=== PATIENT | female | born 1960 | race Two or more races ===

== ENCOUNTER 2017-09-10 11:56 | Emergency (ER) | payer MEDICAID, OTHER ==
[~2017-09-10] VITALS: Ht 149.9 cm; Wt 63.5 kg
[2017-09-10] MEDS ORDERED: Tylenol #3 tab (300mg/30mg) ORAL ONE (12:45)
--- NOTE | 2017-09-10 13:32 | Diagnostic Imaging Report ---
Indication: Headache Technique: Continuous helical CT scanning of the head was performed utilizing automated exposure control without intravenous contrast material. Axial and coronal reconstructions were obtained. Comparison: 06/20/2015 CT dose: Total DLP 1382.93 mGycm; CTDI vol 70.38 mGy Findings: There is no acute intracranial hemorrhage, mass effect, midline shift or cortical edema. The ventricles, cisterns and sulci are within normal limits for age. Visualized mastoid air cells and paranasal sinuses are unremarkable. No focal lesions of the bony calvarium or soft tissues of the scalp are seen. Impression: No evidence of acute intracranial hemorrhage, mass effect, midline shift or cortical edema. MRI may be obtained for more sensitive evaluation as clinically indicated. The CT scanner at [facility] is accredited by the [employer] and the scans are performed using protocols designed to limit radiation exposure to as low as reasonably achievable to attain images of sufficient resolution adequate for diagnostic evaluation.
[2017-09-10] MEDS ORDERED: AMOXICILLIN500 MG ORAL (13:53)
[2017-09-10] MEDS ORDERED: IBUPROFEN600 MG ORAL (13:53)
[2017-09-10 14:26] VITALS: BP 110/67
[2017-09-11] MEDS ORDERED: NAPROSYN500 M1 ORAL (06:45)
[2017-09-11] MEDS ORDERED: ROBAFEN100 MG/5 M PO (06:45)
--- NOTE | 2017-09-11 13:06 | Emergency Room Report ---
History of Present Illness General Chief Complaint: Headache Source: Patient Present Illness HPI 57-year-old female presents ED for evaluation. Patient states that she's been experience and headache for one week. Started initially with a "cold". Patient describes congestion and runny nose and sinus pressure. States he has not resolved. Now has a headache. Throbbing, 7/10, nonradiating. Denies photophobia or blurry vision. States she feels nauseous. Denies fevers or chills. Denies neck stiffness. No other aggravating relieving factors. Denies any other associated symptoms Allergies: Coded Allergies: NO KNOWN ALLERGIES (Unverified Allergy, Unknown, 06/20/15) Patient History Past Medical History: none Past Surgical History: none Pertinent Family History: none Social History: Denies: smoking, alcohol use, drug use Now: No Immunizations: UTD Reviewed Nursing Documentation: PMH: Agreed, PSxH: Agreed Nursing Documentation-PMH Past Medical History: No Stated History Review of Systems All Other Systems: negative except mentioned in HPI Physical Exam Vital Signs Date Time Temp Pulse Resp B/P (MAP) Pulse Ox O2 Delivery O2 Flow Rate FiO2 09/10/17 12:12 97.7 67 16 104/68 95 Room Air Sp02 EP Interpretation: reviewed, normal General Appearance: no apparent distress, alert, GCS 15, non-toxic Head: normocephalic, atraumatic Eyes: bilateral eye normal inspection, bilateral eye PERRL ENT: hearing grossly normal, normal pharynx, no angioedema, normal voice Neck: full range of motion, no meningismus, supple/symm/no masses Respiratory: chest non-tender, lungs clear, normal breath sounds, speaking full sentences Cardiovascular #1: regular rate, rhythm, no edema Cardiovascular #2: 2+ carotid (R), 2+ carotid (L), 2+ radial (R), 2+ radial (L) , 2+ dorsalis pedis (R), 2+ dorsalis pedis (L) Gastrointestinal: normal bowel sounds, non tender, soft, non-distended, no guarding, no rebound Rectal: deferred Genitourinary: normal inspection, no CVA tenderness Musculoskeletal: back normal, gait/station normal, normal range of motion, non- tender Neurologic: alert, oriented x3, responsive, motor strength/tone normal, sensory intact, speech normal Psychiatric: judgement/insight normal, memory normal, mood/affect normal, no suicidal/homicidal ideation Reflexes: 3+ bicep (R), 3+ bicep (L), 3+ tricep (R), 3+ tricep (L), 3+ knee (R) , 3+ knee (L) Skin: normal color, no rash, warm/dry, well hydrated Lymphatic: no adenopathy Medical Decision Making Diagnostic Impression: Primary Impression: Headache Qualified Codes: R51 - Headache ER Course Hospital Course 57-year-old female presents to ED complaining of headache with nausea, pressure- like, recent history of cold Differential diagnoses include: intracranial bleed, CVA, sinusitis, migraine Clinical course Patient placed on stretcher. After initial history and physical I ordered CT head and pain medications CT head shows no acute process. on reassessment pain is improved. clinically most consistent with sinusitis. Diagnosis -headache Stable and discharged to home with Rx amoxicillin, motrin. Followup with PMD. Return to ED if symptoms recur or worsen CT/MRI/US Diagnostic Results CT/MRI/US Diagnostic Results : Imaging Test Ordered: CT Head Impression no acute process Last Vital Signs Date Time Temp Pulse Resp B/P (MAP) Pulse Ox O2 Delivery O2 Flow Rate FiO2 09/10/17 14:26 97.7 66 15 110/67 99 Room Air Status: improved Disposition: HOME, SELF-CARE Condition: Stable Scripts Ibuprofen* (MOTRIN*) 600 Mg Tablet 600 MG ORAL Q8H Y for For Pain, #30 TAB 0 Refills Prov: ANU DE LA GARZA M.D. 09/10/17 Amoxicillin* (AMOXIL*) 500 Mg Capsule 500 MG ORAL THREE TIMES A DAY for 10 Days, #30 CAP Prov: ANU DE LA GARZA M.D. 09/10/17 Referrals: NON PHYSICIAN (PCP) Patient Instructions: Sinus Headache ANU DE LA GARZA M.D. Sep 11, 2017 13:06
== END 2017-09-10 14:31 | disposition home or self-care (01) ==
LOC: EMR 12:40
DX: R51 Headache (principal)
CPT/HCPCS: 70450; 96372; 99284; J2405

== ENCOUNTER 2017-09-11 04:38 | Inpatient (IN) | payer MEDICAID ==
[~2017-09-11] VITALS: Ht 149.9 cm; Wt 66.7 kg
[~2017-09-11 04:38] MED LIST: AMOXICILLIN500 MG ORAL; IBUPROFEN600 MG ORAL
[2017-09-11 04:48] VITALS: BP 95/58
[2017-09-11] MEDS ORDERED: Sucralfate 1gm tab ORAL ONE (05:15)
--- NOTE | 2017-09-11 05:21 | Emergency Room Report ---
History of Present Illness General Chief Complaint: Abdominal Pain Source: Patient Present Illness HPI Patient is a 57-year-old female presented after increased epigastric pain. Patient gradual onset of symptoms the patient reported having worsened epigastric burning sensation after taking ibuprofen. The patient recently been seen for headache and had been prescribed ibuprofen. The patient presented prior history of gastritis. Patient reports having pain in the epigastric area. Radiated to her back. She had recent upper respiratory, symptoms. Allergies: Coded Allergies: NO KNOWN ALLERGIES (Unverified Allergy, Unknown, 06/20/15) Patient History Past Medical History: see triage record Last Menstrual Period: NA Now: No Reviewed Nursing Documentation: PMH: Agreed, PSxH: Agreed Nursing Documentation-PMH Past Medical History: No Stated History Review of Systems All Other Systems: negative except mentioned in HPI Physical Exam Vital Signs Date Time Temp Pulse Resp B/P (MAP) Pulse Ox O2 Delivery O2 Flow Rate FiO2 09/11/17 04:41 75 18 95/58 98 Room Air 09/11/17 04:48 98.2 Sp02 EP Interpretation: reviewed, normal General Appearance: normal inspection, well appearing, alert, GCS 15, mild distress Head: atraumatic ENT: normal ENT inspection, hearing grossly normal, normal voice Neck: normal inspection, full range of motion, supple, no bony tend Respiratory: normal inspection, lungs clear, normal breath sounds, no respiratory distress, no retraction, no wheezing Cardiovascular #1: regular rate, rhythm, no edema Gastrointestinal: normal inspection, normal bowel sounds, non tender, soft, no guarding, no hernia Genitourinary: no CVA tenderness Musculoskeletal: normal inspection, back normal, normal range of motion Neurologic: normal inspection, alert, oriented x3, responsive, oil sales and service rep III-XII nml as tested, speech normal Psychiatric: normal inspection, judgement/insight normal, mood/affect normal Skin: normal inspection, normal color, no rash Medical Decision Making Diagnostic Impression: Primary Impression: Pancreatitis, acute ER Course .Patient presented for abdominal pain. Differential diagnoses included ischemic bowel, appendicitis, perforated viscus, abdominal aortic aneurysm, inferior myocardial infarction, viral gastroenteritis. Because of complexity of patient' s case laboratory testing and imaging studies were ordered. Patient was given IV fluids here and pain medications. She was noted to have some improvement. Laboratory testing was notable for markedly elevated lipase consistent with pancreatitis. Dr. Dwyer was contacted for inpatient management due to complexity of medical condition and capititated physician. Labs Test 09/11/17 05:25 White Blood Count 9.6 K/UL (4.8-10.8) Red Blood Count 4.79 M/UL (4.20-5.40) Hemoglobin 14.0 G/DL (12.0-16.0) Hematocrit 41.8 % (37.0-47.0) Mean Corpuscular Volume 87 FL (80-99) Mean Corpuscular Hemoglobin 29.2 PG (27.0-31.0) Mean Corpuscular Hemoglobin Concent 33.5 G/DL (32.0-36.0) Red Cell Distribution Width 11.4 % (11.6-14.8) Platelet Count 366 K/UL (150-450) Mean Platelet Volume 7.7 FL (6.5-10.1) Neutrophils (%) (Auto) 67.2 % (45.0-75.0) Lymphocytes (%) (Auto) 25.7 % (20.0-45.0) Monocytes (%) (Auto) 5.7 % (1.0-10.0) Eosinophils (%) (Auto) 0.8 % (0.0-3.0) Basophils (%) (Auto) 0.6 % (0.0-2.0) Prothrombin Time 10.0 SEC (9.30-11.50) Prothromb Time International Ratio 1.0 (0.9-1.1) Activated Partial Thromboplast Time 25 SEC (23-33) Urine Color Yellow Urine Appearance Clear Urine pH 8 (4.5-8.0) Urine Specific [place] 1.010 (1.005-1.035) Urine Protein Negative (NEGATIVE) Urine Glucose (UA) Negative (NEGATIVE) Urine Ketones Negative (NEGATIVE) Urine Occult Blood 2+ (NEGATIVE) Urine Nitrite Negative (NEGATIVE) Urine Bilirubin Negative (NEGATIVE) Urine Urobilinogen Normal MG/DL (0.0-1.0) Urine Leukocyte Esterase 2+ (NEGATIVE) Urine RBC 2-4 /HPF (0 - 2) Urine WBC 5-10 /HPF (0 - 2) Urine Squamous Epithelial Cells Few /LPF (NONE/OCC) Urine Amorphous Sediment Many /LPF (NONE) Urine Bacteria Few /HPF (NONE) Sodium Level 140 MMOL/L (136-145) Potassium Level 3.5 MMOL/L (3.5-5.1) Chloride Level 103 MMOL/L (98-107) Carbon Dioxide Level 28 MMOL/L (21-32) Anion Gap 9 mmol/L (5-15) Blood Urea Nitrogen 18 mg/dL (7-18) Creatinine 0.8 MG/DL (0.55-1.30) Estimat Glomerular Filtration Rate > 60 mL/min (>60) Glucose Level 122 MG/DL (74-106) Calcium Level 9.2 MG/DL (8.5-10.1) Total Bilirubin 0.4 MG/DL (0.2-1.0) Aspartate Amino Transf (AST/SGOT) 28 U/L (15-37) Alanine Aminotransferase (ALT/SGPT) 30 U/L (12-78) Alkaline Phosphatase 135 U/L (46-116) Troponin I 0.000 ng/mL (0.000-0.056) Total Protein 8.7 G/DL (6.4-8.2) Albumin 3.8 G/DL (3.4-5.0) Globulin 4.9 g/dL Albumin/Globulin Ratio 0.8 (1.0-2.7) Lipase 1644 U/L (73-393) Last Vital Signs Date Time Temp Pulse Resp B/P (MAP) Pulse Ox O2 Delivery O2 Flow Rate FiO2 09/11/17 04:48 98.2 82 18 95/58 98 Room Air Status: improved Disposition: ADMITTED INPATIENT Condition: Serious Referrals: [facility],REFERRING (PCP) Teodoro Sanford Sep 11, 2017 05:21
[2017-09-11 05:29] LABS: BASOPHILS % (AUTO) 0.6 % (0.0-2.0); EOSINOPHILS % (AUTO) 0.8 % (0.0-3.0); HEMATOCRIT 41.8 % (37.0-47.0); LYMPHOCYTES % (AUTO) 25.7 % (20.0-45.0); MEAN CORPUSCULAR VOLUME 87 FL (80-99); MONOCYTES % (AUTO) 5.7 % (1.0-10.0); NEUTROPHILS % (AUTO) 67.2 % (45.0-75.0); PLATELET COUNT 366 K/UL (150-450); RED BLOOD COUNT 4.79 M/UL (4.20-5.40); RED CELL DISTRIBUTION WIDTH 11.4 % (11.6-14.8); WHITE BLOOD COUNT 9.6 K/UL (4.8-10.8)
[2017-09-11 05:32] LABS: APPEARANCE,URINE CLEAR; BILIRUBIN, URINE NEGATIVE (NEGATIVE); GLUCOSE, URINE (UA) NEGATIVE (NEGATIVE); KETONES,URINE NEGATIVE (NEGATIVE); LEUKOCYTE ESTERASE ,URINE 2+ (NEGATIVE); NITRITE,URINE NEGATIVE (NEGATIVE); PH,URINE 8 (4.5-8.0); PROTEIN,URINE NEGATIVE (NEGATIVE); UROBILINOGEN,URINE NORMAL MG/DL (0.0-1.0)
[2017-09-11 05:38] LABS: COLOR,URINE YELLOW
[2017-09-11 05:40] LABS: ANION GAP 9 mmol/L (5-15); BLOOD UREA NITROGEN 18 mg/dL (7-18); CALCIUM 9.2 MG/DL (8.5-10.1); CARBON DIOXIDE 28 MMOL/L (21-32); CHLORIDE 103 MMOL/L (98-107); CREATININE 0.8 MG/DL (0.55-1.30); POTASSIUM 3.5 MMOL/L (3.5-5.1); SODIUM 140 MMOL/L (136-145)
[2017-09-11 05:45] LABS: ALANINE AMINOTRANSFERASE 30 U/L (12-78); ALBUMIN 3.8 G/DL (3.4-5.0); ALBUMIN/GLOBULIN RATIO 0.8 (1.0-2.7); ALKALINE PHOSPHATASE 135 U/L (46-116); ASPARTATE AMINO TRANSFERASE 28 U/L (15-37); BILIRUBIN,TOTAL 0.4 MG/DL (0.2-1.0)
[2017-09-11] MEDS ORDERED: cefTRIAXone 1 GM in NS 55 ML IVPB ONE (05:45)
[2017-09-11] MEDS ORDERED: Morphine Sulfate 4mg/ml Inj IVP ONE (06:00)
[2017-09-11] MEDS ORDERED: Nitroglycerin Subl 0.4mg tab SL PRN (06:45)
[2017-09-11] MEDS ORDERED: NAPROSYN500 M1 ORAL (06:45)
[2017-09-11] MEDS ORDERED: Mylanta II UD 30ml ORAL PRN (06:45)
[2017-09-11] MEDS ORDERED: ROBAFEN100 MG/5 M PO (06:45)
[2017-09-11 06:48] VITALS: BP 118/69
[2017-09-11] MEDS ORDERED: D5 1/2NS 1,000 ML IV SCH (07:30)
[2017-09-11 08:00] VITALS: BP 112/60
[2017-09-11] MEDS: Pantoprazole Inj IVP SCH (08:54)
[2017-09-11] MEDS: Morphine Sulfate 2mg/ml Inj IVP PRN ×2 (08:55→18:32)
[2017-09-11] MEDS: Heparin 5000 units/ml inj SUBQ SCH ×2 (08:56→20:55)
--- NOTE | 2017-09-11 09:09 | Diagnostic Imaging Report ---
Clinical Indication: Abdominal pain Technique: No oral contrast utilized, per emergency room physician request IV administration nonionic contrast. Venous phase spiral acquisition obtained through the abdomen and pelvis. Multiplanar reconstructions were generated. Total dose length product 907.35 mGycm. CTDIvol(s) 17.49 mGy. Dose reduction achieved using automated exposure control Comparison: none Findings: The stomach is distended. The proximal small bowel is distended and fluid-filled with an extremely gradual tapering to normal caliber small bowel in the left side of the abdomen. The terminal ileum is also slightly prominent, filled with fluid and small bowel feces. Some edema is seen within the fat adjacent to the ligament of Treitz. There are a few colonic diverticula. The appendix is not definitely visualized, but no findings to suggest acute appendicitis are evident. A few prominent nodes are seen in the right lower quadrant. There is a small fat-containing ventral hernia. No free or loculated intraperitoneal air or fluid. The distal esophagus is unremarkable. The liver is diffusely mildly hypoattenuating. The gallbladder, bile ducts, pancreas, spleen, adrenals, kidneys are unremarkable. No retroperitoneal or mesenteric mass or adenopathy. No pelvic mass or adenopathy. Uterus and adnexal structures appear unremarkable. The bones are unremarkable. A non-calcified 5 mm solid nodule in the right lower lobe (series 5, image 12) is indeterminate. At least 2 calcified granulomata are also seen at the right lung base. Impression: Distended stomach, duodenum, and proximal small bowel, with gradual tapering to normal caliber small bowel at the level of the distal jejunum. Findings may indicate either proximal low grade small bowel obstruction, versus unusual manifestation of ileus or enteritis. Correlate with clinical findings Mild hepatic fatty change Small fat-containing ventral hernia Indeterminate solid pulmonary nodule measuring 5 mm. In a low-risk patient with a solid nodule <6 mm, recommend no follow-up. In a high-risk patient, CT at 12 months is optional with stronger consideration if there is suspicious nodule morphology and/or upper lobe location. This agrees with the preliminary interpretation provided overnight by [facility] teleradiology service. Jace Bustos et al. Guidelines for Management of Incidental Pulmonary Nodules Detected on CT Images: From the Fleischner Society 2017. Radiology. 2017 [place];284(1):228-243. The CT scanner at [facility] is accredited by the [employer] and the scans are performed using protocols designed to limit radiation exposure to as low as reasonably achievable to attain images of sufficient resolution adequate for diagnostic evaluation.
[2017-09-11 09:56] LABS: CHOLESTEROL 201 MG/DL (< 200); HDL CHOLESTEROL 41 MG/DL (40-60); TRIGLYCERIDES 207 MG/DL (30-150)
--- NOTE | 2017-09-11 11:24 | Consultation ---
Consult Note Consult Note id dic # [id number] HUE HERNANDEZ M.D. Sep 11, 2017 11:23
--- NOTE | 2017-09-11 11:32 | History and Physical ---
History of Present Illness General Date patient seen: Sep 11, 2017 Reason for Hospitalization: Abdominal Pain Present Illness HPI 57-year-old female with prior history of gastritis presented after increased epigastric pain with gradual onset of symptoms after taking ibuprofen. Patient reports having pain in the epigastric area. Radiated to her back. She was found to have acute pancreatitis with increased lipase and admitted for further management. Allergies: Coded Allergies: NO KNOWN ALLERGIES (Unverified Allergy, Unknown, 06/20/15) Medication History Scheduled Amoxicillin* (Amoxil*), 500 MG ORAL THREE TIMES A DAY Guaifenesin (Robafen), 100 MG PO Q6HR, (Reported) Naproxen* (Naprosyn*), 500 MG ORAL TWICE A DAY, (Reported) Scheduled PRN Ibuprofen* (Motrin*), 600 MG ORAL Q8H PRN for For Pain Patient History Healthcare decision maker Resuscitation status Full Code Advanced Directive on File Review of Systems Constitutional: Reports: malaise, weakness Gastrointestinal: Reports: nausea, vomiting Physical Exam General Appearance: WD/WN, no apparent distress Lines, tubes and drains: peripheral HEENT: normocephalic, atraumatic Neck: non-tender, normal alignment Respiratory/Chest: chest wall non-tender, lungs clear Abdomen: normal bowel sounds Genitourinary/Rectal: normal genital exam Last 24 Hour Vital Signs Date Time Temp Pulse Resp B/P (MAP) Pulse Ox O2 Delivery O2 Flow Rate FiO2 09/11/17 08:07 98.2 60 16 118/69 97 Room Air 09/11/17 08:00 97.2 59 20 112/60 99 Room Air 09/11/17 07:04 98.2 09/11/17 06:48 98.2 60 16 118/69 97 Room Air 09/11/17 04:48 98.2 82 18 95/58 98 Room Air 09/11/17 04:41 75 18 95/58 98 Room Air Laboratory Tests Test 09/11/17 05:25 White Blood Count 9.6 K/UL (4.8-10.8) Red Blood Count 4.79 M/UL (4.20-5.40) Hemoglobin 14.0 G/DL (12.0-16.0) Hematocrit 41.8 % (37.0-47.0) Mean Corpuscular Volume 87 FL (80-99) Mean Corpuscular Hemoglobin 29.2 PG (27.0-31.0) Mean Corpuscular Hemoglobin Concent 33.5 G/DL (32.0-36.0) Red Cell Distribution Width 11.4 % (11.6-14.8) L Platelet Count 366 K/UL (150-450) Mean Platelet Volume 7.7 FL (6.5-10.1) Neutrophils (%) (Auto) 67.2 % (45.0-75.0) Lymphocytes (%) (Auto) 25.7 % (20.0-45.0) Monocytes (%) (Auto) 5.7 % (1.0-10.0) Eosinophils (%) (Auto) 0.8 % (0.0-3.0) Basophils (%) (Auto) 0.6 % (0.0-2.0) Prothrombin Time 10.0 SEC (9.30-11.50) Prothromb Time International Ratio 1.0 (0.9-1.1) Activated Partial Thromboplast Time 25 SEC (23-33) Urine Color Yellow Urine Appearance Clear Urine pH 8 (4.5-8.0) Urine Specific [place] 1.010 (1.005-1.035) Urine Protein Negative (NEGATIVE) Urine Glucose (UA) Negative (NEGATIVE) Urine Ketones Negative (NEGATIVE) Urine Occult Blood 2+ (NEGATIVE) H Urine Nitrite Negative (NEGATIVE) Urine Bilirubin Negative (NEGATIVE) Urine Urobilinogen Normal MG/DL (0.0-1.0) Urine Leukocyte Esterase 2+ (NEGATIVE) H Urine RBC 2-4 /HPF (0 - 2) H Urine WBC 5-10 /HPF (0 - 2) H Urine Squamous Epithelial Cells Few /LPF (NONE/OCC) Urine Amorphous Sediment Many /LPF (NONE) H Urine Bacteria Few /HPF (NONE) Sodium Level 140 MMOL/L (136-145) Potassium Level 3.5 MMOL/L (3.5-5.1) Chloride Level 103 MMOL/L (98-107) Carbon Dioxide Level 28 MMOL/L (21-32) Anion Gap 9 mmol/L (5-15) Blood Urea Nitrogen 18 mg/dL (7-18) Creatinine 0.8 MG/DL (0.55-1.30) Estimat Glomerular Filtration Rate > 60 mL/min (>60) Glucose Level 122 MG/DL (74-106) H Calcium Level 9.2 MG/DL (8.5-10.1) Total Bilirubin 0.4 MG/DL (0.2-1.0) Aspartate Amino Transf (AST/SGOT) 28 U/L (15-37) Alanine Aminotransferase (ALT/SGPT) 30 U/L (12-78) Alkaline Phosphatase 135 U/L (46-116) H Troponin I 0.000 ng/mL (0.000-0.056) Total Protein 8.7 G/DL (6.4-8.2) H Albumin 3.8 G/DL (3.4-5.0) Globulin 4.9 g/dL Albumin/Globulin Ratio 0.8 (1.0-2.7) L Triglycerides Level 207 MG/DL (30-150) H Cholesterol Level 201 MG/DL (< 200) H LDL Cholesterol 123 mg/dL (<100) H HDL Cholesterol 41 MG/DL (40-60) Cholesterol/HDL Ratio 4.9 (3.3-4.4) H Lipase 1644 U/L (73-393) H Height (Feet): 4 Height (Inches): 11.00 Weight (Pounds): 147 Medications Current Medications Medications (Trade) Dose Ordered Sig/Machelle Route PRN Reason Start Time Stop Time Status Last Admin Dose Admin Acetaminophen (Tylenol) 650 mg Q4H PRN ORAL T>100.5 09/11/17 06:45 10/11/17 06:44 Al Hydroxide/Mg Hydroxide (Mylanta II) 30 ml Q6H PRN ORAL dyspepsia 09/11/17 06:45 10/11/17 06:44 Dextrose (Dextrose 50%) STAT PRN IV Hypoglycemia 09/11/17 06:45 10/11/17 06:44 Dextrose/Sodium Chloride 1,000 ml @ 75 mls/hr [id number] IV 09/11/17 07:30 10/11/17 07:29 09/11/17 08:54 Diphenhydramine HCl (Benadryl) 25 mg Q6H PRN ORAL Itching/Pruritis 09/11/17 06:45 10/11/17 06:44 Heparin Sodium (Porcine) (Heparin 5000 units/ml) 5,000 units EVERY 12 HOURS SUBQ 09/11/17 09:00 10/11/17 08:59 09/11/17 08:56 Morphine Sulfate (Morphine Sulfate) 2 mg Q4H PRN IVP Severe Pain (Pain Scale 7-10) 09/11/17 06:45 09/18/17 06:44 09/11/17 08:55 Nitroglycerin (Ntg) 0.4 mg Q5M X 3 DOSES PRN SL Prn Chest Pain 09/11/17 06:45 10/11/17 06:44 Ondansetron HCl (Zofran) 4 mg Q6H PRN IVP Nausea & Vomiting 09/11/17 06:45 10/11/17 06:44 Pantoprazole (Protonix) 40 mg DAILY IVP 09/11/17 09:00 10/11/17 08:59 09/11/17 08:54 Polyethylene Glycol (Miralax) 17 gm HSPRN PRN ORAL Constipation 09/11/17 21:00 10/11/17 20:59 Temazepam (Restoril) 15 mg HSPRN PRN ORAL Insomnia 09/11/17 21:00 09/18/17 20:59 Assessment/Plan Problem List: (1) Pancreatitis, acute ICD Codes: K85.90 - Acute pancreatitis without necrosis or infection, unspecified SNOMED: [id number] Assessment/Plan npo IV fluids symptomatic treatment GI to see ROSEANNA ROTH Sep 11, 2017 11:32
[2017-09-11 12:00] VITALS: BP 106/60
[2017-09-11] MEDS: D5 1/2NS 1,000 ML IV SCH ×2 (12:30→20:48)
--- NOTE | 2017-09-11 12:39 | Diagnostic Imaging Report ---
Indication: Reason For Exam: SOB Technique: One view of the chest Comparison: none Findings: There is a calcified granuloma at the right lung base. Lungs well spaces are otherwise clear. Normal heart size. Impression: No acute process
--- NOTE | 2017-09-11 13:05 | Neurology Progress Note ---
Objective Physical Exam Last Vital Signs Date Time Temp Pulse Resp B/P (MAP) Pulse Ox O2 Delivery O2 Flow Rate FiO2 09/11/17 08:07 98.2 60 16 118/69 97 Room Air Laboratory Tests Test 09/11/17 05:25 White Blood Count 9.6 K/UL (4.8-10.8) Red Blood Count 4.79 M/UL (4.20-5.40) Hemoglobin 14.0 G/DL (12.0-16.0) Hematocrit 41.8 % (37.0-47.0) Mean Corpuscular Volume 87 FL (80-99) Mean Corpuscular Hemoglobin 29.2 PG (27.0-31.0) Mean Corpuscular Hemoglobin Concent 33.5 G/DL (32.0-36.0) Red Cell Distribution Width 11.4 % (11.6-14.8) L Platelet Count 366 K/UL (150-450) Mean Platelet Volume 7.7 FL (6.5-10.1) Neutrophils (%) (Auto) 67.2 % (45.0-75.0) Lymphocytes (%) (Auto) 25.7 % (20.0-45.0) Monocytes (%) (Auto) 5.7 % (1.0-10.0) Eosinophils (%) (Auto) 0.8 % (0.0-3.0) Basophils (%) (Auto) 0.6 % (0.0-2.0) Prothrombin Time 10.0 SEC (9.30-11.50) Prothromb Time International Ratio 1.0 (0.9-1.1) Activated Partial Thromboplast Time 25 SEC (23-33) Urine Color Yellow Urine Appearance Clear Urine pH 8 (4.5-8.0) Urine Specific [place] 1.010 (1.005-1.035) Urine Protein Negative (NEGATIVE) Urine Glucose (UA) Negative (NEGATIVE) Urine Ketones Negative (NEGATIVE) Urine Occult Blood 2+ (NEGATIVE) H Urine Nitrite Negative (NEGATIVE) Urine Bilirubin Negative (NEGATIVE) Urine Urobilinogen Normal MG/DL (0.0-1.0) Urine Leukocyte Esterase 2+ (NEGATIVE) H Urine RBC 2-4 /HPF (0 - 2) H Urine WBC 5-10 /HPF (0 - 2) H Urine Squamous Epithelial Cells Few /LPF (NONE/OCC) Urine Amorphous Sediment Many /LPF (NONE) H Urine Bacteria Few /HPF (NONE) Sodium Level 140 MMOL/L (136-145) Potassium Level 3.5 MMOL/L (3.5-5.1) Chloride Level 103 MMOL/L (98-107) Carbon Dioxide Level 28 MMOL/L (21-32) Anion Gap 9 mmol/L (5-15) Blood Urea Nitrogen 18 mg/dL (7-18) Creatinine 0.8 MG/DL (0.55-1.30) Estimat Glomerular Filtration Rate > 60 mL/min (>60) Glucose Level 122 MG/DL (74-106) H Calcium Level 9.2 MG/DL (8.5-10.1) Total Bilirubin 0.4 MG/DL (0.2-1.0) Aspartate Amino Transf (AST/SGOT) 28 U/L (15-37) Alanine Aminotransferase (ALT/SGPT) 30 U/L (12-78) Alkaline Phosphatase 135 U/L (46-116) H Troponin I 0.000 ng/mL (0.000-0.056) Total Protein 8.7 G/DL (6.4-8.2) H Albumin 3.8 G/DL (3.4-5.0) Globulin 4.9 g/dL Albumin/Globulin Ratio 0.8 (1.0-2.7) L Triglycerides Level 207 MG/DL (30-150) H Cholesterol Level 201 MG/DL (< 200) H LDL Cholesterol 123 mg/dL (<100) H HDL Cholesterol 41 MG/DL (40-60) Cholesterol/HDL Ratio 4.9 (3.3-4.4) H Lipase 1644 U/L (73-393) H Impression/Recommendations Recommendations #[id number] ANNABELLE MUÑOZ Sep 11, 2017 13:05
[2017-09-11] MEDS ORDERED: Meclizine 25mg tab ORAL PRN (13:15)
--- NOTE | 2017-09-11 13:58 | Consultation ---
History of Present Illness General Date patient seen: Sep 11, 2017 Chief Complaint: Abdominal Pain Reason for Consultation: abdominal pain Present Illness HPI 57F presented to ED with complaints of cramping abdominal pain, nausea and emesis. States that she has had symptoms for a few days and came to ED yesterday. Pain began as a epigastric discomfort with radiation to the back. pain sharp and intermittent. associated with nausea and non bloody emesis. had a similar episode many years ago but does not recall details. In ED found to have elevated lipase, CT with distended proximal small bowel and stomach with no transition point. states she is otherwise healthy. currently more comfortable but does have a headache. did have episode of emesis this AM. mild cramping currently. Allergies: Coded Allergies: NO KNOWN ALLERGIES (Unverified Allergy, Unknown, 06/20/15) Medication History Scheduled Amoxicillin* (Amoxil*), 500 MG ORAL THREE TIMES A DAY Guaifenesin (Robafen), 100 MG PO Q6HR, (Reported) Naproxen* (Naprosyn*), 500 MG ORAL TWICE A DAY, (Reported) Scheduled PRN Ibuprofen* (Motrin*), 600 MG ORAL Q8H PRN for For Pain Patient History History Provided By: Patient, Medical Record Healthcare decision maker Resuscitation status Full Code Advanced Directive on File Past Medical/Surgical History Past Medical/Surgical History: (1) Pancreatitis, acute (2) Headache Review of Systems Constitutional: Denies: no symptoms, see HPI, chills, sweats, fever, malaise, weakness, other Eye: Denies: no symptoms, see HPI, eye pain, blurred vision, tearing, double vision, nose pain, nose congestion, acuity changes, discharge, other ENT: Denies: no symptoms, see HPI, ear pain, ear discharge, nose pain, nose congestion, throat pain, throat swelling, mouth pain, hearing loss, nasal discharge, other Respiratory: Denies: no symptoms, see HPI, cough, orthopnea, shortness of breath, stridor, wheezing, WILKS, sputum, other Cardiovascular: Denies: no symptoms, see HPI, chest pain, edema, palpitations, syncope, PND, other Gastrointestinal: Reports: abdominal pain, nausea, vomiting Genitourinary: Denies: no symptoms, see HPI, discharge, dysuria, frequency, hematuria, pain, retention, incontinence, urgency, vag bleed/dc, other Musculoskeletal: Denies: no symptoms, see HPI, back pain, gout, joint pain, joint swelling, muscle pain, muscle stiffness, other Skin: Denies: no symptoms, see HPI, rash, change in color, change in hair/nails , dryness, lesions, other Psychiatric: Denies: no symptoms, see HPI, prior hx, anxiety, depressed feelings, emotional problems, SI, HI, hallucinations, other Neurological: Reports: headache Endocrine: Denies: no symptoms, see HPI, excessive sweating, flushing, intolerance to temperature, increased thirst, increased urine, unexplained weight loss, other Hematologic/Lymphatic: Denies: no symptoms, see HPI, anemia, blood clots, easy bleeding, easy bruising, swollen glands, diathesis, other Physical Exam General Appearance: WD/WN, no apparent distress, alert Lines, tubes and drains: peripheral HEENT: normocephalic, anicteric, mucous membranes moist, PERRL Neck: normal alignment, supple, normal inspection Respiratory/Chest: lungs clear, normal breath sounds, no respiratory distress, no accessory muscle use Cardiovascular/Chest: normal peripheral pulses, normal rate, regular rhythm Abdomen: normal bowel sounds, non tender, soft, no organomegaly, no mass Extremities: normal range of motion, non-tender, normal inspection Skin Exam: normal pigmentation, warm/dry Neurologic: alert, oriented x 3, responsive Last 24 Hour Vital Signs Date Time Temp Pulse Resp B/P (MAP) Pulse Ox O2 Delivery O2 Flow Rate FiO2 09/11/17 12:00 61 20 106/60 09/11/17 08:07 98.2 60 16 118/69 97 Room Air 09/11/17 08:00 97.2 59 20 112/60 99 Room Air 09/11/17 07:04 98.2 09/11/17 06:48 98.2 60 16 118/69 97 Room Air 09/11/17 04:48 98.2 82 18 95/58 98 Room Air 09/11/17 04:41 75 18 95/58 98 Room Air Laboratory Tests Test 09/11/17 05:25 White Blood Count 9.6 K/UL (4.8-10.8) Red Blood Count 4.79 M/UL (4.20-5.40) Hemoglobin 14.0 G/DL (12.0-16.0) Hematocrit 41.8 % (37.0-47.0) Mean Corpuscular Volume 87 FL (80-99) Mean Corpuscular Hemoglobin 29.2 PG (27.0-31.0) Mean Corpuscular Hemoglobin Concent 33.5 G/DL (32.0-36.0) Red Cell Distribution Width 11.4 % (11.6-14.8) L Platelet Count 366 K/UL (150-450) Mean Platelet Volume 7.7 FL (6.5-10.1) Neutrophils (%) (Auto) 67.2 % (45.0-75.0) Lymphocytes (%) (Auto) 25.7 % (20.0-45.0) Monocytes (%) (Auto) 5.7 % (1.0-10.0) Eosinophils (%) (Auto) 0.8 % (0.0-3.0) Basophils (%) (Auto) 0.6 % (0.0-2.0) Prothrombin Time 10.0 SEC (9.30-11.50) Prothromb Time International Ratio 1.0 (0.9-1.1) Activated Partial Thromboplast Time 25 SEC (23-33) Urine Color Yellow Urine Appearance Clear Urine pH 8 (4.5-8.0) Urine Specific [place] 1.010 (1.005-1.035) Urine Protein Negative (NEGATIVE) Urine Glucose (UA) Negative (NEGATIVE) Urine Ketones Negative (NEGATIVE) Urine Occult Blood 2+ (NEGATIVE) H Urine Nitrite Negative (NEGATIVE) Urine Bilirubin Negative (NEGATIVE) Urine Urobilinogen Normal MG/DL (0.0-1.0) Urine Leukocyte Esterase 2+ (NEGATIVE) H Urine RBC 2-4 /HPF (0 - 2) H Urine WBC 5-10 /HPF (0 - 2) H Urine Squamous Epithelial Cells Few /LPF (NONE/OCC) Urine Amorphous Sediment Many /LPF (NONE) H Urine Bacteria Few /HPF (NONE) Sodium Level 140 MMOL/L (136-145) Potassium Level 3.5 MMOL/L (3.5-5.1) Chloride Level 103 MMOL/L (98-107) Carbon Dioxide Level 28 MMOL/L (21-32) Anion Gap 9 mmol/L (5-15) Blood Urea Nitrogen 18 mg/dL (7-18) Creatinine 0.8 MG/DL (0.55-1.30) Estimat Glomerular Filtration Rate > 60 mL/min (>60) Glucose Level 122 MG/DL (74-106) H Calcium Level 9.2 MG/DL (8.5-10.1) Total Bilirubin 0.4 MG/DL (0.2-1.0) Aspartate Amino Transf (AST/SGOT) 28 U/L (15-37) Alanine Aminotransferase (ALT/SGPT) 30 U/L (12-78) Alkaline Phosphatase 135 U/L (46-116) H Troponin I 0.000 ng/mL (0.000-0.056) Total Protein 8.7 G/DL (6.4-8.2) H Albumin 3.8 G/DL (3.4-5.0) Globulin 4.9 g/dL Albumin/Globulin Ratio 0.8 (1.0-2.7) L Triglycerides Level 207 MG/DL (30-150) H Cholesterol Level 201 MG/DL (< 200) H LDL Cholesterol 123 mg/dL (<100) H HDL Cholesterol 41 MG/DL (40-60) Cholesterol/HDL Ratio 4.9 (3.3-4.4) H Lipase 1644 U/L (73-393) H Anti-Nuclear Antibody Screen Pending Height (Feet): 4 Height (Inches): 11.00 Weight (Pounds): 147 Medications Current Medications Medications (Trade) Dose Ordered Sig/Machelle Route PRN Reason Start Time Stop Time Status Last Admin Dose Admin Acetaminophen (Tylenol) 650 mg Q4H PRN ORAL T>100.5 09/11/17 06:45 10/11/17 06:44 Al Hydroxide/Mg Hydroxide (Mylanta II) 30 ml Q6H PRN ORAL dyspepsia 09/11/17 06:45 10/11/17 06:44 Dextrose (Dextrose 50%) STAT PRN IV Hypoglycemia 09/11/17 06:45 10/11/17 06:44 Dextrose/Sodium Chloride 1,000 ml @ 125 mls/hr Q8H IV 09/11/17 12:30 10/11/17 12:29 Diphenhydramine HCl (Benadryl) 25 mg Q6H PRN ORAL Itching/Pruritis 09/11/17 06:45 10/11/17 06:44 Heparin Sodium (Porcine) (Heparin 5000 units/ml) 5,000 units EVERY 12 HOURS SUBQ 09/11/17 09:00 10/11/17 08:59 09/11/17 08:56 Meclizine HCl (Antivert) 25 mg Q6H PRN ORAL for dizziness 09/11/17 13:15 10/11/17 13:14 Morphine Sulfate (Morphine Sulfate) 2 mg Q4H PRN IVP Severe Pain (Pain Scale 7-10) 09/11/17 06:45 09/18/17 06:44 09/11/17 08:55 Nitroglycerin (Ntg) 0.4 mg Q5M X 3 DOSES PRN SL Prn Chest Pain 09/11/17 06:45 10/11/17 06:44 Ondansetron HCl (Zofran) 4 mg Q6H PRN IVP Nausea & Vomiting 09/11/17 06:45 10/11/17 06:44 Pantoprazole (Protonix) 40 mg DAILY IVP 09/11/17 09:00 10/11/17 08:59 09/11/17 08:54 Polyethylene Glycol (Miralax) 17 gm HSPRN PRN ORAL Constipation 09/11/17 21:00 10/11/17 20:59 Temazepam (Restoril) 15 mg HSPRN PRN ORAL Insomnia 09/11/17 21:00 09/18/17 20:59 Assessment/Plan Problem List: (1) Pancreatitis, acute Assessment & Plan: 57F with acute pancreatitis likely from dyslipidemia. CT demonstrates distended filled stomach and proximal small bowel without obstruction or compromise. afebrile, HD stable, labs okay, exam benign. CT findings likely from gastroparesis/ileus possibly secondary to pancreatitis. will need to continue work up. -NPO -IV fluids -NG tube to decompress filled stomach contents -ultrasound abdomen. -trend labs -thank you for this consultation. will follow with recs ICD Codes: K85.90 - Acute pancreatitis without necrosis or infection, unspecified SNOMED: [id number] Qualifiers: Qualified Codes: K85.90 - Acute pancreatitis without necrosis or infection, unspecified Status: stable Jase Lombardi Sep 11, 2017 13:58
[2017-09-11 15:03] LABS: AMMONIA 16 umol/L (11-32)
--- NOTE | 2017-09-11 15:12 | Diagnostic Imaging Report ---
Indication: Altered mental status, dizziness, vertigo, vomiting Technique: sagittal T1 fast spin echo, axial T1 FLAIR, axial T2 FLAIR, axial T2 FS PROPELLER, axial T2* GRE, axial diffusion weighted images. ADC and exponential ADC maps generated Comparison: Reference made to brain CT 09/10/2017 Findings: No abnormal areas of restricted diffusion to suggest acute infarction. No acute hemorrhage or edema. No mass effect nor midline shift. There is minimal age-related prominence of the ventricles and extra axial CSF spaces. There is minimal periventricular high T2 signal adjacent to the atrium of the right lateral ventricle The vascular flow voids are preserved. Visualized orbits and sinuses are unremarkable. Impression: Minimal age-related volume loss. Negative for acute intracranial bleed, mass effect, or infarct
--- NOTE | 2017-09-11 15:30 | Consultation ---
DATE OF CONSULTATION: 09/11/2017 INFECTIOUS DISEASE CONSULTATION CONSULTING PHYSICIAN: Jun Contreras M.D REQUESTING PHYSICIAN: Liliya Dwyer M.D. REASON FOR CONSULTATION: Evaluation of the patient for possible gastroenteritis and antibiotic management. HISTORY OF PRESENT ILLNESS: The patient is a 57-year-old female with no significant past medical history, who was brought to the hospital with chief complaint of vomiting, nausea, and headaches x1 week. The CT scan did not show any significant findings. During hospitalization, the patient has not had any fever. No photophobia. Infectious Diseases consultation has been requested for further evaluation of the patient and antibiotic management. CT scan of the abdomen was suggestive of possible proximal low-grade small bowel obstruction, possible enteritis. ALLERGIES: No known drug allergies. SOCIAL HISTORY: The patient lives with family. FAMILY HISTORY: Not contributing. MEDICATIONS: The patient received one dose of Rocephin in the emergency room. PHYSICAL EXAMINATION: VITAL SIGNS: Temperature 98, blood pressure 118/69, pulse 86, and respiratory rate 18. HEENT: No pale conjunctivae. No icterus. NECK: No lymphadenopathy. No neck rigidity. CHEST: Clear. HEART: S1 and S2. ABDOMEN: Soft. EXTREMITIES: No cyanosis at this time. NEUROLOGIC: Awake. LABORATORY AND DIAGNOSTIC DATA: White blood cells 9.6, hemoglobin 14, and platelets 366,000. UA shows 5 to 10 white blood cells and 2 to 4 red blood cells. BUN 18 and creatinine 0.8. ALT and AST are unremarkable. Alkaline phosphatase 135. Lipase 1644. CT of the head unremarkable. CT of abdomen as mentioned above. ASSESSMENT: 1. The patient is a 57-year-old female with headaches, doubt meningitis. No neck rigidity. No photophobia. No fever. The patient's symptoms persist over a week. However, if the patient does not improve, we may need to rule out possible chronic meningitis. 2. Elevated lipase, possible pancreatitis, however, CT scan is unremarkable. No evidence of necrotizing pancreatitis. 3. Possible viral gastroenteritis. (The patient has vomiting, however, no diarrhea). PLAN: 1. We will monitor patient off of antibiotics. 2. Monitor CBC. 3. Monitor BMP. 4. Check CRP. 5. Check amylase and lipase. 6. Recommend new evaluation for headaches. 7. Based on the patient's clinical course and labs, we will do further recommendations. Thank you, Dr. Dwyer, for allowing us the care of this patient. I will follow the patient with you during this hospitalization. Jun Contreras M.D. DR: BRAD JOB#: [id number] CC:
[2017-09-11 16:00] VITALS: BP 125/63
--- NOTE | 2017-09-11 16:13 | GI Initial Consult Note ---
History of Present Illness General Date patient seen: Sep 11, 2017 Time patient seen: 15:59 Reason for Hospitalization: Abdominal Pain Referring physician: ROSEANNA SOLER Reason for Consultation: PANCREATITIS Present Illness HPI Patient is a 57-year-old female presented after increased epigastric pain. Patient gradual onset of symptoms the patient reported having worsened epigastric burning sensation after taking ibuprofen. The patient recently been seen for headache and had been prescribed ibuprofen. The patient presented prior history of gastritis. Patient reports having pain in the epigastric area. Radiated to her back. She had recent upper respiratory, symptoms. GI consulted for pancreatitis. HPI as noted above. Per family member, the patient reported having severe epigastric pain with radiation to the back over night causing her to have multiple episodes of emesis. Denies any hematemesis or coffee grounds. CT AP findings may indicate either proximal low grade small bowel obstruction, versus unusual manifestation of ileus or enteritis. Presents today with elevated lipase levels 1600. Brain MRI unremarkable. Lipid panel reviewed. Unknown history of endoscopy / colonoscopy. Home Meds Active Scripts Ibuprofen* (MOTRIN*) 600 Mg Tablet, 600 MG ORAL Q8H Y for For Pain, #30 TAB 0 Refills Prov:ANU DE LA GARZA M.D. 09/10/17 Amoxicillin* (AMOXIL*) 500 Mg Capsule, 500 MG ORAL THREE TIMES A DAY for 10 Days , #30 CAP Prov:ANU DE LA GARZA M.D. 09/10/17 Reported Medications Guaifenesin (ROBAFEN) 100 Mg/5 Ml Liquid, 100 MG PO Q6HR, ML 09/11/17 Naproxen* (NAPROSYN*) 500 Mg Tablet, 500 MG ORAL TWICE A DAY, TAB 09/11/17 Med list reviewed/reconciled: Yes Allergies: Coded Allergies: NO KNOWN ALLERGIES (Unverified Allergy, Unknown, 06/20/15) Patient History History Provided By: Patient, Medical Record PMH Narrative Past Medical History: see triage record Last Menstrual Period: NA Now: No Reviewed Nursing Documentation: PMH: Agreed, PSxH: Agreed Nursing Documentation-PMH Past Medical History: No Stated History Social History: Denies: smoking, alcohol use, drug use, other Review of Systems All Other Systems: negative except mentioned in HPI Physical Exam Vital Signs Date Time Temp Pulse Resp B/P (MAP) Pulse Ox O2 Delivery O2 Flow Rate FiO2 09/11/17 04:41 75 18 95/58 98 Room Air 09/11/17 04:48 98.2 Sp02 EP Interpretation: reviewed, normal Labs Laboratory Tests Test 09/11/17 05:25 09/11/17 14:20 09/11/17 15:30 White Blood Count 9.6 K/UL (4.8-10.8) Red Blood Count 4.79 M/UL (4.20-5.40) Hemoglobin 14.0 G/DL (12.0-16.0) Hematocrit 41.8 % (37.0-47.0) Mean Corpuscular Volume 87 FL (80-99) Mean Corpuscular Hemoglobin 29.2 PG (27.0-31.0) Mean Corpuscular Hemoglobin Concent 33.5 G/DL (32.0-36.0) Red Cell Distribution Width 11.4 % (11.6-14.8) L Platelet Count 366 K/UL (150-450) Mean Platelet Volume 7.7 FL (6.5-10.1) Neutrophils (%) (Auto) 67.2 % (45.0-75.0) Lymphocytes (%) (Auto) 25.7 % (20.0-45.0) Monocytes (%) (Auto) 5.7 % (1.0-10.0) Eosinophils (%) (Auto) 0.8 % (0.0-3.0) Basophils (%) (Auto) 0.6 % (0.0-2.0) Prothrombin Time 10.0 SEC (9.30-11.50) Prothromb Time International Ratio 1.0 (0.9-1.1) Activated Partial Thromboplast Time 25 SEC (23-33) Urine Color Yellow Urine Appearance Clear Urine pH 8 (4.5-8.0) Urine Specific [place] 1.010 (1.005-1.035) Urine Protein Negative (NEGATIVE) Urine Glucose (UA) Negative (NEGATIVE) Urine Ketones Negative (NEGATIVE) Urine Occult Blood 2+ (NEGATIVE) H Urine Nitrite Negative (NEGATIVE) Urine Bilirubin Negative (NEGATIVE) Urine Urobilinogen Normal MG/DL (0.0-1.0) Urine Leukocyte Esterase 2+ (NEGATIVE) H Urine RBC 2-4 /HPF (0 - 2) H Urine WBC 5-10 /HPF (0 - 2) H Urine Squamous Epithelial Cells Few /LPF (NONE/OCC) Urine Amorphous Sediment Many /LPF (NONE) H Urine Bacteria Few /HPF (NONE) Sodium Level 140 MMOL/L (136-145) Potassium Level 3.5 MMOL/L (3.5-5.1) Chloride Level 103 MMOL/L (98-107) Carbon Dioxide Level 28 MMOL/L (21-32) Anion Gap 9 mmol/L (5-15) Blood Urea Nitrogen 18 mg/dL (7-18) Creatinine 0.8 MG/DL (0.55-1.30) Estimat Glomerular Filtration Rate > 60 mL/min (>60) Glucose Level 122 MG/DL (74-106) H Calcium Level 9.2 MG/DL (8.5-10.1) Total Bilirubin 0.4 MG/DL (0.2-1.0) Aspartate Amino Transf (AST/SGOT) 28 U/L (15-37) Alanine Aminotransferase (ALT/SGPT) 30 U/L (12-78) Alkaline Phosphatase 135 U/L (46-116) H Troponin I 0.000 ng/mL (0.000-0.056) Total Protein 8.7 G/DL (6.4-8.2) H Albumin 3.8 G/DL (3.4-5.0) Globulin 4.9 g/dL Albumin/Globulin Ratio 0.8 (1.0-2.7) L Triglycerides Level 207 MG/DL (30-150) H Cholesterol Level 201 MG/DL (< 200) H LDL Cholesterol 123 mg/dL (<100) H HDL Cholesterol 41 MG/DL (40-60) Cholesterol/HDL Ratio 4.9 (3.3-4.4) H Lipase 1644 U/L (73-393) H Anti-Nuclear Antibody Screen Pending Ammonia 16 umol/L (11-32) Vitamin B12 Level 854 PG/ML (193-986) Urine Opiates Screen Positive (NEGATIVE) H Urine Barbiturates Screen Negative (NEGATIVE) Phencyclidine (PCP) Screen Negative (NEGATIVE) Urine Amphetamines Screen Negative (NEGATIVE) Urine Benzodiazepines Screen Negative (NEGATIVE) Urine Cocaine Screen Negative (NEGATIVE) Urine Marijuana (THC) Screen Negative (NEGATIVE) General Appearance: well appearing, no apparent distress, alert Head: normocephalic EENT: PERRL/EOMI, normal ENT inspection Neck: supple Respiratory: normal breath sounds, no respiratory distress Cardiovascular: normal rate Gastrointestinal: normal inspection, non tender, soft, normal bowel sounds, non -distended Rectal: deferred Genitourinary: no CVA tenderness Musculoskeletal: normal inspection, back normal Neurologic: normal inspection, alert, oriented x3, responsive Psychiatric: normal inspection, judgement/insight normal, memory normal Skin: normal inspection, normal color, no rash, warm/dry, palpation normal, well hydrated Lymphatic: normal inspection, no adenopathy Current Medications Current Medications Medications (Trade) Dose Ordered Sig/Machelle Route PRN Reason Start Time Stop Time Status Last Admin Dose Admin Acetaminophen (Tylenol) 650 mg Q4H PRN ORAL T>100.5 09/11/17 06:45 10/11/17 06:44 Al Hydroxide/Mg Hydroxide (Mylanta II) 30 ml Q6H PRN ORAL dyspepsia 09/11/17 06:45 10/11/17 06:44 Dextrose (Dextrose 50%) STAT PRN IV Hypoglycemia 09/11/17 06:45 10/11/17 06:44 Dextrose/Sodium Chloride 1,000 ml @ 125 mls/hr Q8H IV 09/11/17 12:30 10/11/17 12:29 Diphenhydramine HCl (Benadryl) 25 mg Q6H PRN ORAL Itching/Pruritis 09/11/17 06:45 10/11/17 06:44 Heparin Sodium (Porcine) (Heparin 5000 units/ml) 5,000 units EVERY 12 HOURS SUBQ 09/11/17 09:00 10/11/17 08:59 09/11/17 08:56 Meclizine HCl (Antivert) 25 mg Q6H PRN ORAL for dizziness 09/11/17 13:15 10/11/17 13:14 Morphine Sulfate (Morphine Sulfate) 2 mg Q4H PRN IVP Severe Pain (Pain Scale 7-10) 09/11/17 06:45 09/18/17 06:44 09/11/17 08:55 Nitroglycerin (Ntg) 0.4 mg Q5M X 3 DOSES PRN SL Prn Chest Pain 09/11/17 06:45 10/11/17 06:44 Ondansetron HCl (Zofran) 4 mg Q6H PRN IVP Nausea & Vomiting 09/11/17 06:45 10/11/17 06:44 Pantoprazole (Protonix) 40 mg DAILY IVP 09/11/17 09:00 10/11/17 08:59 09/11/17 08:54 Polyethylene Glycol (Miralax) 17 gm HSPRN PRN ORAL Constipation 09/11/17 21:00 10/11/17 20:59 Temazepam (Restoril) 15 mg HSPRN PRN ORAL Insomnia 09/11/17 21:00 09/18/17 20:59 GI: Plan Problems: (1) Pancreatitis, acute Plan fu surgical recs >> CT findings likely from gastroparesis/ileus possibly secondary to pancreatitis. trial of non operative management, ex lap if fails. NPO + IVFs bowel decompression >> NGT to LIS pain mgmt serial monitoring repeat imaging prn, fu abdominal U/S. abx fu labs Discussed with Dr. Mccarthy. Thank you for this patient referral, we will follow. Josephine Jung N.P. Sep 11, 2017 16:13
--- NOTE | 2017-09-11 16:39 | Diagnostic Imaging Report ---
Indication: Reason For Exam: NGT Technique: Supine view of the upper abdomen Comparison: Injection Operator image from CT scan performed earlier the same day Findings: Interim placement of a nasogastric tube, tip of which projects at the level of the gastric antrum. Bowel gas pattern is grossly unremarkable Impression: Satisfactory nasogastric intubation
--- NOTE | 2017-09-11 16:52 | Diagnostic Imaging Report ---
Indication: Abdominal pain, abnormal liver function tests Technique: Campbell-scale and duplex images of the upper abdomen were obtained Comparison: Reference made to abdomen and pelvis CT of earlier the same day Findings: Gallbladder is unremarkable, without stones, wall thickening, nor pericholecystic fluid. Sonographic Butt's sign is negative. Common bile duct measures 3 mm in diameter. No intrahepatic biliary ductal dilatation. Liver demonstrates normal echogenicity, no focal abnormality. Portal vein and hepatic veins are patent. Pancreas is unremarkable. Spleen is unremarkable. Left kidney measures 10.7 cm in length. Right kidney measures 11.4 cm length. Both kidneys demonstrate normal echogenicity. There is no hydronephrosis. Apparent small echogenic foci in the left kidney are probably artifactual, as no corresponding abnormalities seen on recent CT scan . Abdominal aorta is partially obscured by bowel gas, visualized portions are non-aneurysmal . Impression: Essentially unremarkable exam Note limited visualization of the abdominal aorta
--- NOTE | 2017-09-11 18:00 | Consultation ---
DATE OF CONSULTATION: 09/11/2017 NEUROLOGICAL CONSULTATION REQUESTING PHYSICIAN: Liliya Dwyer M.D. HISTORY OF PRESENT ILLNESS: This is a 57-year-old female seen in neurological consultation to evaluate a new onset of severe headache, positional vertigo, nausea, and epigastric pain. The patient informed me that she has at least one or two years history of intermittent epigastric discomfort for which she was taken omeprazole and ibuprofen. Week ago with no obvious reason, she developed fevers, developed a dull periorbital vertex region headaches, gradually she developed positional vertigo and nausea. In addition, she has evidence of coughing and sneezing. There was no unilateral weakness, numbness, or tingling. No chest pain. No palpitations. Vital signs included blood pressure 95/58 and temperature 98.2 degrees. The patient indicated predominantly abdominal pain. She was given IV fluids, pain medication with slight improvement. Vital signs [id number] stable. She was afebrile. Her laboratory work included a normal CBC study. Normal coagulation panel. Urinalysis, 5-10 WBCs and 2+ leukocyte esterase. Her chemistry panel was markedly abnormal with a lipase of 144. Lipid panel, cholesterol 201 and . She has elevation protein of 8.7, alkaline phosphatase is 135, blood sugar 122, otherwise it was normal study. Chest x-ray revealed calcified granuloma right lung base, no acute abnormalities. Abdomen pelvic CT scan revealed a distended stomach, duodenum and proximal small bowel. Finding indicating proximal low grade small bowel obstruction versus unusual manifestation of ileus or enteritis, mild hepatic fatty change. Small fat containing ventral hernia. There was intermediate solid pulmonary nodule 5 mm. The patient's treatment included IV fluids and antibiotics. Tylenol for pain control, Benadryl, Pepcid, subcutaneous heparin, morphine p.r.n., Zofran, pantoprazole, Carafate, and Restoril. PAST MEDICAL HISTORY: The patient has a history of epigastric discomfort for last couple of years. She is taking Motrin, omeprazole for discomfort. In June 2015 seen for headaches at this facility. She denied at this time history past medical history, recent head trauma. [place] that the patient is suffering from a posttraumatic cephalgia. Her CT scan of the brain was normal. SOCIAL HISTORY: Lives with her . She indicated she has no alcohol or drug abuse. Nonsmoker. FAMILY HISTORY: Noncontributory. REVIEW OF SYSTEMS: Persistent headache, dizziness, vertigo predominantly when moving head, but is somewhat subsiding with eyes open and lying still. Denies hearing loss, but has mild epigastric discomfort, which she relates is chronic. She has intermittent nausea. Denies upper or lower extremities pain or discomfort. No gait abnormalities. No swallow, speech, vision or hearing abnormalities. No urine or bowel incontinence. PHYSICAL EXAMINATION: GENERAL: A well-developed and well-nourished pleasant lady, not in acute distress, lying comfortably in bed. Her and her daughter at bedside. VITAL SIGNS: Now are stable. She is afebrile. HEENT: Head, normocephalic. There is no evidence of trauma. Eyes, ears, and throat are clear. NECK: Supple. No meningeal signs. MUSCULOSKELETAL: Unremarkable. There is no deformities. Peripheral pulses 1+ symmetric. MENTAL STATUS: She is alert and oriented x3 with no evidence of aphasia or apraxia. Cognitive function normal. CRANIAL NERVES II: Pupils 3 mm responding to light and accommodation. Extraocular movement intact. No nystagmus. CRANIAL NERVES V: Normal corneal responses. CRANIAL NERVES VII: No facial asymmetry. CRANIAL NERVES VIII: Grossly normal hearing. Unable to perform Hallpike maneuver due to the patient's severe nausea and photophobia. CRANIAL NERVES IX THROUGH XII: Tongue is in midline. Symmetric palate elevation. MOTOR EXAMINATION: Normal muscle tone and strength 5/5 in all extremities. No involuntary movement. Deep tendon reflexes 1+ symmetric with downgoing toes on both sides. SENSORY EXAM: Normal to pinprick light touch. Gait not tested, but reported able to ambulate without assistance. IMPRESSION: Recent onset of fever, cough, sneezing, headache, positional vertigo and epigastric pain, rule out viral syndrome, rule out benign positional vertigo, rule out acute pancreatitis. DISCUSSION: The patient has no evidence of focal lateralizing neurological deficit, but described presence of positional vertigo and headaches developed a week ago combined with what seems upper respiratory infection. She has a chronic epigastric pain and current pancreatitis may represent exacerbation of preexistent condition. Further diagnostic studies may include MRI of the brain. Treatment to include Antivert 25 mg t.i.d. Continue with the pain management and gastrointestinal workup. Thank you for allowing me to see this interesting patient in neurological consultation. Ean Johnny Patel DR: JOSE JOB#: [id number] CC:
[2017-09-11 20:00] VITALS: BP 94/52
[2017-09-11] MEDS ORDERED: Miralax 17gm pkt ORAL PRN (21:00)
[2017-09-12] VITALS: BP 107/66
[2017-09-12] MEDS: D5 1/2NS 1,000 ML IV SCH (03:28)
[2017-09-12 04:00] VITALS: BP 111/60
[2017-09-12 07:06] LABS: BASOPHILS % (AUTO) 0.5 % (0.0-2.0); EOSINOPHILS % (AUTO) 0.8 % (0.0-3.0); HEMATOCRIT 35.9 % (37.0-47.0); LYMPHOCYTES % (AUTO) 24.8 % (20.0-45.0); MEAN CORPUSCULAR VOLUME 88 FL (80-99); MONOCYTES % (AUTO) 7.8 % (1.0-10.0); NEUTROPHILS % (AUTO) 66.1 % (45.0-75.0); PLATELET COUNT 295 K/UL (150-450); RED BLOOD COUNT 4.07 M/UL (4.20-5.40); RED CELL DISTRIBUTION WIDTH 11.6 % (11.6-14.8); WHITE BLOOD COUNT 7.5 K/UL (4.8-10.8)
[2017-09-12 07:40] LABS: ALANINE AMINOTRANSFERASE 30 U/L (12-78); ALBUMIN/GLOBULIN RATIO 0.7 (1.0-2.7); ALKALINE PHOSPHATASE 111 U/L (46-116); AMYLASE 78 U/L (25-115); ANION GAP 11 mmol/L (5-15); ASPARTATE AMINO TRANSFERASE 22 U/L (15-37); BILIRUBIN,TOTAL 0.3 MG/DL (0.2-1.0); BLOOD UREA NITROGEN 10 mg/dL (7-18); CALCIUM 8.5 MG/DL (8.5-10.1); CARBON DIOXIDE 26 MMOL/L (21-32); CHLORIDE 106 MMOL/L (98-107); CREATININE 0.6 MG/DL (0.55-1.30); POTASSIUM 3.4 MMOL/L (3.5-5.1); SODIUM 143 MMOL/L (136-145)
[2017-09-12] MEDS: Pantoprazole Inj IVP SCH (08:04)
[2017-09-12] MEDS: Heparin 5000 units/ml inj SUBQ SCH ×2 (08:09→20:06)
--- NOTE | 2017-09-12 10:05 | General Surgery Progress Note ---
General Surgery-Progress Note Subjective Additional Comments Doing okay. still complaining of mild abdominal upper discomfort. no n/v/f/c. NG tube in place with gastric contents out. no flatus or BM. headache okay Objective Last 24 Hour Vital Signs Date Time Temp Pulse Resp B/P (MAP) Pulse Ox O2 Delivery O2 Flow Rate FiO2 09/12/17 04:00 97.5 61 19 111/60 96 09/12/17 00:00 97.9 61 20 107/66 96 09/11/17 20:00 98.1 62 20 94/52 95 09/11/17 16:00 96.8 72 20 125/63 99 09/11/17 12:00 61 20 106/60 I&O Intake and Output 09/11/17 09/12/17 19:00 07:00 Intake Total 1000 ml Balance 1000 ml Intake IV Total 1000 ml # Voids 5 1 Drains: none Cardiovascular: RSR Respiratory: clear Abdomen: soft, tenderness, present bowel sounds Extremities: no edema, no tenderness Laboratory Tests Test 09/11/17 14:20 09/11/17 15:30 09/12/17 05:50 Ammonia 16 umol/L (11-32) Vitamin B12 Level 854 PG/ML (193-986) Urine Opiates Screen Positive (NEGATIVE) H Urine Barbiturates Screen Negative (NEGATIVE) Phencyclidine (PCP) Screen Negative (NEGATIVE) Urine Amphetamines Screen Negative (NEGATIVE) Urine Benzodiazepines Screen Negative (NEGATIVE) Urine Cocaine Screen Negative (NEGATIVE) Urine Marijuana (THC) Screen Negative (NEGATIVE) White Blood Count 7.5 K/UL (4.8-10.8) Red Blood Count 4.07 M/UL (4.20-5.40) L Hemoglobin 12.0 G/DL (12.0-16.0) Hematocrit 35.9 % (37.0-47.0) L Mean Corpuscular Volume 88 FL (80-99) Mean Corpuscular Hemoglobin 29.4 PG (27.0-31.0) Mean Corpuscular Hemoglobin Concent 33.4 G/DL (32.0-36.0) Red Cell Distribution Width 11.6 % (11.6-14.8) Platelet Count 295 K/UL (150-450) Mean Platelet Volume 8.2 FL (6.5-10.1) Neutrophils (%) (Auto) 66.1 % (45.0-75.0) Lymphocytes (%) (Auto) 24.8 % (20.0-45.0) Monocytes (%) (Auto) 7.8 % (1.0-10.0) Eosinophils (%) (Auto) 0.8 % (0.0-3.0) Basophils (%) (Auto) 0.5 % (0.0-2.0) Erythrocyte Sedimentation Rate 55 MM/HR (0-30) H Activated Partial Thromboplast Time 27 SEC (23-33) Sodium Level 143 MMOL/L (136-145) Potassium Level 3.4 MMOL/L (3.5-5.1) L Chloride Level 106 MMOL/L (98-107) Carbon Dioxide Level 26 MMOL/L (21-32) Anion Gap 11 mmol/L (5-15) Blood Urea Nitrogen 10 mg/dL (7-18) Creatinine 0.6 MG/DL (0.55-1.30) Estimat Glomerular Filtration Rate > 60 mL/min (>60) Glucose Level 111 MG/DL (74-106) H Calcium Level 8.5 MG/DL (8.5-10.1) Phosphorus Level 3.0 MG/DL (2.5-4.9) Magnesium Level 2.3 MG/DL (1.8-2.4) Total Bilirubin 0.3 MG/DL (0.2-1.0) Aspartate Amino Transf (AST/SGOT) 22 U/L (15-37) Alanine Aminotransferase (ALT/SGPT) 30 U/L (12-78) Alkaline Phosphatase 111 U/L (46-116) C-Reactive Protein, Quantitative 2.6 mg/dL (0.00-0.90) H Total Protein 7.3 G/DL (6.4-8.2) Albumin 3.0 G/DL (3.4-5.0) L Globulin 4.3 g/dL Albumin/Globulin Ratio 0.7 (1.0-2.7) L Amylase Level 78 U/L (25-115) Lipase 181 U/L (73-393) Plan Problems: (1) Pancreatitis, acute Assessment & Plan: 57F with acute pancreatitis likely from dyslipidemia. CT demonstrates distended filled stomach and proximal small bowel without obstruction or compromise. afebrile, HD stable, labs okay, exam benign. CT findings likely from gastroparesis/ileus possibly secondary to pancreatitis. will need to continue work up. Ultrasound with normal GB and no stones. No history of EtOH. elevated cholesterol and lipids. -NPO -IV fluids -NG tube to decompress filled stomach contents -await return of bowel function. -thank you for this consultation. will follow with Jase Rosenthal Sep 12, 2017 10:05
--- NOTE | 2017-09-12 10:51 | Infectious Diseases Prog Note ---
Assessment/Plan Assessment/Plan ASSESSMENT: The patient is a 57-year-old female CAMACHO x 1 wk improving doubt meningitis but if does not resolve may need to rule out possible chronic meningitis No neck rigidity. No photophobia. No fever MRI ( brain ) : neg Pancreatitis, 09/11 Elevated lipase ==> Nl 09/12 CT: No evidence of necrotizing pancreatitis Probable viral gastroenteritis. CRP : 2.6 hx of vomiting, nausea, no diarrhea CT: possible proximal low-grade small bowel obstruction, possible enteritis US- abd : Neg Vertigo improving Indeterminate solid pulmonary nodule measuring [address] ) 09/11 PLAN: We will monitor patient off of antibiotics Monitor CBC Monitor BMP. amylase and lipase. Neuro . GI and GenSurg following NPO Subjective Allergies: Coded Allergies: NO KNOWN ALLERGIES (Unverified Allergy, Unknown, 06/20/15) Subjective Afebrile CAMACHO improved Objective Vital Signs Last 24 Hour Vital Signs Date Time Temp Pulse Resp B/P (MAP) Pulse Ox O2 Delivery O2 Flow Rate FiO2 09/12/17 04:00 97.5 61 19 111/60 96 09/12/17 00:00 97.9 61 20 107/66 96 09/11/17 20:00 98.1 62 20 94/52 95 09/11/17 16:00 96.8 72 20 125/63 99 09/11/17 12:00 61 20 106/60 Height (Feet): 4 Height (Inches): 11.00 Weight (Pounds): 147 HEENT: mucous membranes moist Respiratory/Chest: no accessory muscle use Cardiovascular: no gallop/murmur Abdomen: non distended Laboratory Tests Test 09/11/17 14:20 09/11/17 15:30 09/12/17 05:50 Ammonia 16 umol/L (11-32) Vitamin B12 Level 854 PG/ML (193-986) Urine Opiates Screen Positive (NEGATIVE) H Urine Barbiturates Screen Negative (NEGATIVE) Phencyclidine (PCP) Screen Negative (NEGATIVE) Urine Amphetamines Screen Negative (NEGATIVE) Urine Benzodiazepines Screen Negative (NEGATIVE) Urine Cocaine Screen Negative (NEGATIVE) Urine Marijuana (THC) Screen Negative (NEGATIVE) White Blood Count 7.5 K/UL (4.8-10.8) Red Blood Count 4.07 M/UL (4.20-5.40) L Hemoglobin 12.0 G/DL (12.0-16.0) Hematocrit 35.9 % (37.0-47.0) L Mean Corpuscular Volume 88 FL (80-99) Mean Corpuscular Hemoglobin 29.4 PG (27.0-31.0) Mean Corpuscular Hemoglobin Concent 33.4 G/DL (32.0-36.0) Red Cell Distribution Width 11.6 % (11.6-14.8) Platelet Count 295 K/UL (150-450) Mean Platelet Volume 8.2 FL (6.5-10.1) Neutrophils (%) (Auto) 66.1 % (45.0-75.0) Lymphocytes (%) (Auto) 24.8 % (20.0-45.0) Monocytes (%) (Auto) 7.8 % (1.0-10.0) Eosinophils (%) (Auto) 0.8 % (0.0-3.0) Basophils (%) (Auto) 0.5 % (0.0-2.0) Erythrocyte Sedimentation Rate 55 MM/HR (0-30) H Activated Partial Thromboplast Time 27 SEC (23-33) Sodium Level 143 MMOL/L (136-145) Potassium Level 3.4 MMOL/L (3.5-5.1) L Chloride Level 106 MMOL/L (98-107) Carbon Dioxide Level 26 MMOL/L (21-32) Anion Gap 11 mmol/L (5-15) Blood Urea Nitrogen 10 mg/dL (7-18) Creatinine 0.6 MG/DL (0.55-1.30) Estimat Glomerular Filtration Rate > 60 mL/min (>60) Glucose Level 111 MG/DL (74-106) H Calcium Level 8.5 MG/DL (8.5-10.1) Phosphorus Level 3.0 MG/DL (2.5-4.9) Magnesium Level 2.3 MG/DL (1.8-2.4) Total Bilirubin 0.3 MG/DL (0.2-1.0) Aspartate Amino Transf (AST/SGOT) 22 U/L (15-37) Alanine Aminotransferase (ALT/SGPT) 30 U/L (12-78) Alkaline Phosphatase 111 U/L (46-116) C-Reactive Protein, Quantitative 2.6 mg/dL (0.00-0.90) H Total Protein 7.3 G/DL (6.4-8.2) Albumin 3.0 G/DL (3.4-5.0) L Globulin 4.3 g/dL Albumin/Globulin Ratio 0.7 (1.0-2.7) L Amylase Level 78 U/L (25-115) Lipase 181 U/L (73-393) Current Medications Medications (Trade) Dose Ordered Sig/Machelle Route PRN Reason Start Time Stop Time Status Last Admin Dose Admin Acetaminophen (Tylenol) 650 mg Q4H PRN ORAL T>100.5 09/11/17 06:45 10/11/17 06:44 Al Hydroxide/Mg Hydroxide (Mylanta II) 30 ml Q6H PRN ORAL dyspepsia 09/11/17 06:45 10/11/17 06:44 Dextrose (Dextrose 50%) STAT PRN IV Hypoglycemia 09/11/17 06:45 10/11/17 06:44 Dextrose/ Electrolytes 1,000 ml @ 125 mls/hr Q8H IV 09/12/17 11:30 10/12/17 11:29 Diphenhydramine HCl (Benadryl) 25 mg Q6H PRN ORAL Itching/Pruritis 09/11/17 06:45 10/11/17 06:44 Heparin Sodium (Porcine) (Heparin 5000 units/ml) 5,000 units EVERY 12 HOURS SUBQ 09/11/17 09:00 10/11/17 08:59 09/12/17 08:09 Meclizine HCl (Antivert) 25 mg Q6H PRN ORAL for dizziness 09/11/17 13:15 10/11/17 13:14 Morphine Sulfate (Morphine Sulfate) 2 mg Q4H PRN IVP Severe Pain (Pain Scale 7-10) 09/11/17 06:45 09/18/17 06:44 09/11/17 18:32 Nitroglycerin (Ntg) 0.4 mg Q5M X 3 DOSES PRN SL Prn Chest Pain 09/11/17 06:45 10/11/17 06:44 Ondansetron HCl (Zofran) 4 mg Q6H PRN IVP Nausea & Vomiting 09/11/17 06:45 10/11/17 06:44 Pantoprazole (Protonix) 40 mg DAILY IVP 09/11/17 09:00 10/11/17 08:59 09/12/17 08:04 Polyethylene Glycol (Miralax) 17 gm HSPRN PRN ORAL Constipation 09/11/17 21:00 10/11/17 20:59 Temazepam (Restoril) 15 mg HSPRN PRN ORAL Insomnia 09/11/17 21:00 09/18/17 20:59 HUE HERNANDEZ M.D. Sep 12, 2017 10:51
[2017-09-12] MEDS: D5 1/2NS w/KCl 20mEq 1,000 ML IV SCH ×2 (11:27→18:07)
[2017-09-12 11:50] VITALS: BP 128/72
--- NOTE | 2017-09-12 12:55 | GI Progress Note ---
Assessment/Plan Problems: (1) Small bowel obstruction ICD Codes: K56.609 - Unspecified intestinal obstruction, unspecified as to partial versus complete obstruction SNOMED: 177833383 (2) Pancreatitis, acute ICD Codes: K85.90 - Acute pancreatitis without necrosis or infection, unspecified SNOMED: 384883657 Qualifiers: Qualified Codes: K85.90 - Acute pancreatitis without necrosis or infection, unspecified (3) Headache ICD Codes: R51 - Headache SNOMED: 15282910 Status: stable, unchanged Status Narrative Discussed with Dr. Mccarthy. Assessment/Plan fu surgical recs >> CT findings likely from gastroparesis/ileus possibly secondary to pancreatitis. abdominal U/S, Brain MRI reviewed >> unremarkable trial of non operative management, ex lap if fails. NPO + IVFs bowel decompression >> NGT to LIS pain mgmt serial monitoring repeat imaging prn, fu abdominal U/S. abx fu labs Subjective Subjective abdominal pain improved headache improved Objective Last 24 Hour Vital Signs Date Time Temp Pulse Resp B/P (MAP) Pulse Ox O2 Delivery O2 Flow Rate FiO2 09/12/17 11:50 97.9 69 20 128/72 97 Room Air 09/12/17 04:00 97.5 61 19 111/60 96 09/12/17 00:00 97.9 61 20 107/66 96 09/11/17 20:00 98.1 62 20 94/52 95 09/11/17 16:00 96.8 72 20 125/63 99 Intake and Output 09/11/17 09/12/17 19:00 07:00 Intake Total 1125 ml Balance 1125 ml Intake IV Total 1125 ml # Voids 5 1 Laboratory Tests Test 09/11/17 14:20 09/11/17 15:30 09/12/17 05:50 Ammonia 16 umol/L (11-32) Vitamin B12 Level 854 PG/ML (193-986) Urine Opiates Screen Positive (NEGATIVE) H Urine Barbiturates Screen Negative (NEGATIVE) Phencyclidine (PCP) Screen Negative (NEGATIVE) Urine Amphetamines Screen Negative (NEGATIVE) Urine Benzodiazepines Screen Negative (NEGATIVE) Urine Cocaine Screen Negative (NEGATIVE) Urine Marijuana (THC) Screen Negative (NEGATIVE) White Blood Count 7.5 K/UL (4.8-10.8) Red Blood Count 4.07 M/UL (4.20-5.40) L Hemoglobin 12.0 G/DL (12.0-16.0) Hematocrit 35.9 % (37.0-47.0) L Mean Corpuscular Volume 88 FL (80-99) Mean Corpuscular Hemoglobin 29.4 PG (27.0-31.0) Mean Corpuscular Hemoglobin Concent 33.4 G/DL (32.0-36.0) Red Cell Distribution Width 11.6 % (11.6-14.8) Platelet Count 295 K/UL (150-450) Mean Platelet Volume 8.2 FL (6.5-10.1) Neutrophils (%) (Auto) 66.1 % (45.0-75.0) Lymphocytes (%) (Auto) 24.8 % (20.0-45.0) Monocytes (%) (Auto) 7.8 % (1.0-10.0) Eosinophils (%) (Auto) 0.8 % (0.0-3.0) Basophils (%) (Auto) 0.5 % (0.0-2.0) Erythrocyte Sedimentation Rate 55 MM/HR (0-30) H Activated Partial Thromboplast Time 27 SEC (23-33) Sodium Level 143 MMOL/L (136-145) Potassium Level 3.4 MMOL/L (3.5-5.1) L Chloride Level 106 MMOL/L (98-107) Carbon Dioxide Level 26 MMOL/L (21-32) Anion Gap 11 mmol/L (5-15) Blood Urea Nitrogen 10 mg/dL (7-18) Creatinine 0.6 MG/DL (0.55-1.30) Estimat Glomerular Filtration Rate > 60 mL/min (>60) Glucose Level 111 MG/DL (74-106) H Calcium Level 8.5 MG/DL (8.5-10.1) Phosphorus Level 3.0 MG/DL (2.5-4.9) Magnesium Level 2.3 MG/DL (1.8-2.4) Total Bilirubin 0.3 MG/DL (0.2-1.0) Aspartate Amino Transf (AST/SGOT) 22 U/L (15-37) Alanine Aminotransferase (ALT/SGPT) 30 U/L (12-78) Alkaline Phosphatase 111 U/L (46-116) C-Reactive Protein, Quantitative 2.6 mg/dL (0.00-0.90) H Total Protein 7.3 G/DL (6.4-8.2) Albumin 3.0 G/DL (3.4-5.0) L Globulin 4.3 g/dL Albumin/Globulin Ratio 0.7 (1.0-2.7) L Amylase Level 78 U/L (25-115) Lipase 181 U/L (73-393) Height (Feet): 4 Height (Inches): 11.00 Weight (Pounds): 147 General Appearance: WD/WN, no apparent distress, alert, thin Cardiovascular: normal rate Respiratory/Chest: normal breath sounds, no respiratory distress Abdominal Exam: normal bowel sounds, non tender, soft, distended, other - tympanic Extremities: normal range of motion, non-tender Josephine Jung N.P. Sep 12, 2017 12:55
[2017-09-12 16:00] VITALS: BP 119/63
--- NOTE | 2017-09-12 16:56 | Pulmonology Progress Note ---
Assessment/Plan Problems: (1) Pancreatitis, acute (2) Small bowel obstruction Assessment/Plan npo Iv fluids NG suction symptomatic treatment Subjective ROS Limited/Unobtainable: No Constitutional: Reports: no symptoms HEENT: Repors: no symptoms Respiratory: Reports: no symptoms Allergies: Coded Allergies: NO KNOWN ALLERGIES (Unverified Allergy, Unknown, 06/20/15) Objective Last 24 Hour Vital Signs Date Time Temp Pulse Resp B/P (MAP) Pulse Ox O2 Delivery O2 Flow Rate FiO2 09/12/17 16:00 98.6 68 19 119/63 93 09/12/17 11:50 97.9 69 20 128/72 97 Room Air 09/12/17 04:00 97.5 61 19 111/60 96 09/12/17 00:00 97.9 61 20 107/66 96 09/11/17 20:00 98.1 62 20 94/52 95 Intake and Output 09/11/17 09/12/17 19:00 07:00 Intake Total 1125 ml Balance 1125 ml Intake IV Total 1125 ml # Voids 5 1 General Appearance: WD/WN HEENT: normocephalic, atraumatic Respiratory/Chest: chest wall non-tender, lungs clear Breasts: no masses Cardiovascular: normal rate Abdomen: normal bowel sounds, no organomegaly Extremities: no cyanosis, no clubbing Skin: no lesions Laboratory Tests 09/12/17 05:50: White Blood Count 7.5, Red Blood Count 4.07L, Hemoglobin 12.0, Hematocrit 35.9L , Mean Corpuscular Volume 88, Mean Corpuscular Hemoglobin 29.4, Mean Corpuscular Hemoglobin Concent 33.4, Red Cell Distribution Width 11.6, Platelet Count 295, Mean Platelet Volume 8.2, Neutrophils (%) (Auto) 66.1, Lymphocytes (% ) (Auto) 24.8, Monocytes (%) (Auto) 7.8, Eosinophils (%) (Auto) 0.8, Basophils ( %) (Auto) 0.5, Erythrocyte Sedimentation Rate 55H, Activated Partial Thromboplast Time 27, Sodium Level 143, Potassium Level 3.4L, Chloride Level 106 , Carbon Dioxide Level 26, Anion Gap 11, Blood Urea Nitrogen 10, Creatinine 0.6 , Estimat Glomerular Filtration Rate > 60, Glucose Level 111H, Calcium Level 8.5 , Phosphorus Level 3.0, Magnesium Level 2.3, Total Bilirubin 0.3, Aspartate Amino Transf (AST/SGOT) 22, Alanine Aminotransferase (ALT/SGPT) 30, Alkaline Phosphatase 111, C-Reactive Protein, Quantitative 2.6H, Total Protein 7.3, Albumin 3.0L, Globulin 4.3, Albumin/Globulin Ratio 0.7L, Amylase Level 78, Lipase 181 Current Medications Medications (Trade) Dose Ordered Sig/Machelle Route PRN Reason Start Time Stop Time Status Last Admin Dose Admin Acetaminophen (Tylenol) 650 mg Q4H PRN ORAL T>100.5 09/11/17 06:45 10/11/17 06:44 Al Hydroxide/Mg Hydroxide (Mylanta II) 30 ml Q6H PRN ORAL dyspepsia 09/11/17 06:45 10/11/17 06:44 Dextrose (Dextrose 50%) STAT PRN IV Hypoglycemia 09/11/17 06:45 10/11/17 06:44 Dextrose/ Electrolytes 1,000 ml @ 125 mls/hr Q8H IV 09/12/17 11:30 10/12/17 11:29 09/12/17 11:27 Diphenhydramine HCl (Benadryl) 25 mg Q6H PRN ORAL Itching/Pruritis 09/11/17 06:45 10/11/17 06:44 Heparin Sodium (Porcine) (Heparin 5000 units/ml) 5,000 units EVERY 12 HOURS SUBQ 09/11/17 09:00 10/11/17 08:59 09/12/17 08:09 Meclizine HCl (Antivert) 25 mg Q6H PRN ORAL for dizziness 09/11/17 13:15 10/11/17 13:14 Morphine Sulfate (Morphine Sulfate) 2 mg Q4H PRN IVP Severe Pain (Pain Scale 7-10) 09/11/17 06:45 09/18/17 06:44 09/11/17 18:32 Nitroglycerin (Ntg) 0.4 mg Q5M X 3 DOSES PRN SL Prn Chest Pain 09/11/17 06:45 10/11/17 06:44 Ondansetron HCl (Zofran) 4 mg Q6H PRN IVP Nausea & Vomiting 09/11/17 06:45 10/11/17 06:44 Pantoprazole (Protonix) 40 mg DAILY IVP 1/23/18 09:00 10/11/17 08:59 09/12/17 08:04 Polyethylene Glycol (Miralax) 17 gm HSPRN PRN ORAL Constipation 09/11/17 21:00 10/11/17 20:59 Temazepam (Restoril) 15 mg HSPRN PRN ORAL Insomnia 09/11/17 21:00 09/18/17 20:59 ROSEANNA ROTH Sep 12, 2017 16:55
[2017-09-12] MEDS: Morphine Sulfate 2mg/ml Inj IVP PRN (17:35)
[2017-09-12 20:00] VITALS: BP 111/63
[2017-09-13] VITALS: BP 98/54
[2017-09-13] MEDS: D5 1/2NS w/KCl 20mEq 1,000 ML IV SCH ×2 (01:51→11:29)
[2017-09-13 04:00] VITALS: BP 113/66
[2017-09-13 08:07] VITALS: BP 115/66
[2017-09-13 08:34] LABS: BASOPHILS % (AUTO) 0.7 % (0.0-2.0); EOSINOPHILS % (AUTO) 0.9 % (0.0-3.0); HEMOGLOBIN 12.3 G/DL (12.0-16.0); MEAN CORPUSCULAR VOLUME 89 FL (80-99); MONOCYTES % (AUTO) 7.4 % (1.0-10.0); PLATELET COUNT 305 K/UL (150-450); RED BLOOD COUNT 4.17 M/UL (4.20-5.40); RED CELL DISTRIBUTION WIDTH 11.5 % (11.6-14.8); WHITE BLOOD COUNT 7.7 K/UL (4.8-10.8)
[2017-09-13 08:36] LABS: ANION GAP 8 mmol/L (5-15); BLOOD UREA NITROGEN 5 mg/dL (7-18); CALCIUM 8.7 MG/DL (8.5-10.1); CARBON DIOXIDE 25 MMOL/L (21-32); CHLORIDE 108 MMOL/L (98-107); CREATININE 0.6 MG/DL (0.55-1.30); POTASSIUM 3.6 MMOL/L (3.5-5.1); SODIUM 141 MMOL/L (136-145)
[2017-09-13] MEDS: Pantoprazole Inj IVP SCH (09:09)
[2017-09-13] MEDS: Heparin 5000 units/ml inj SUBQ SCH (09:10)
--- NOTE | 2017-09-13 10:43 | General Surgery Progress Note ---
General Surgery-Progress Note Subjective Symptoms: improved, pain absent Additional Comments doing better. no pain. no n/v/f/c. comfortable. ng tube output minimal gastric contents. Objective Last 24 Hour Vital Signs Date Time Temp Pulse Resp B/P (MAP) Pulse Ox O2 Delivery O2 Flow Rate FiO2 09/13/17 08:07 98.2 64 20 115/66 97 Room Air 09/13/17 04:00 97.9 65 20 113/66 95 09/13/17 00:00 98.7 67 20 98/54 96 09/12/17 20:00 98.3 72 20 111/63 94 09/12/17 18:05 98.6 09/12/17 16:00 98.6 68 19 119/63 93 09/12/17 11:50 97.9 69 20 128/72 97 Room Air I&O Intake and Output 09/12/17 09/13/17 19:00 07:00 Intake Total 1125 ml 1500 ml Output Total 275 ml 25 ml Balance 850 ml 1475 ml Intake IV Total 1125 ml 1500 ml Output Other 275 ml 25 ml # Voids 3 3 Cardiovascular: RSR Respiratory: clear Abdomen: soft, flat, non-tender Extremities: no tenderness Laboratory Tests Test 09/13/17 06:24 White Blood Count 7.7 K/UL (4.8-10.8) Red Blood Count 4.17 M/UL (4.20-5.40) L Hemoglobin 12.3 G/DL (12.0-16.0) Hematocrit 37.0 % (37.0-47.0) Mean Corpuscular Volume 89 FL (80-99) Mean Corpuscular Hemoglobin 29.5 PG (27.0-31.0) Mean Corpuscular Hemoglobin Concent 33.3 G/DL (32.0-36.0) Red Cell Distribution Width 11.5 % (11.6-14.8) L Platelet Count 305 K/UL (150-450) Mean Platelet Volume 8.0 FL (6.5-10.1) Neutrophils (%) (Auto) 62.0 % (45.0-75.0) Lymphocytes (%) (Auto) 29.0 % (20.0-45.0) Monocytes (%) (Auto) 7.4 % (1.0-10.0) Eosinophils (%) (Auto) 0.9 % (0.0-3.0) Basophils (%) (Auto) 0.7 % (0.0-2.0) Sodium Level 141 MMOL/L (136-145) Potassium Level 3.6 MMOL/L (3.5-5.1) Chloride Level 108 MMOL/L (98-107) H Carbon Dioxide Level 25 MMOL/L (21-32) Anion Gap 8 mmol/L (5-15) Blood Urea Nitrogen 5 mg/dL (7-18) L Creatinine 0.6 MG/DL (0.55-1.30) Estimat Glomerular Filtration Rate > 60 mL/min (>60) Glucose Level 103 MG/DL (74-106) Calcium Level 8.7 MG/DL (8.5-10.1) Plan Problems: (1) Pancreatitis, acute Assessment & Plan: 57F with acute pancreatitis likely from dyslipidemia. CT demonstrates distended filled stomach and proximal small bowel without obstruction or compromise. afebrile, HD stable, labs okay, exam benign. CT findings likely from gastroparesis/ileus possibly secondary to pancreatitis. will need to continue work up. Ultrasound with normal GB and no stones. No history of EtOH. elevated cholesterol and lipids. pain resolved. looking better. D/C NG tube Start clear liquids -thank you for this consultation. will follow with Jase Rosenthal Sep 13, 2017 10:43
--- NOTE | 2017-09-13 10:51 | GI Progress Note ---
Assessment/Plan Problems: (1) Small bowel obstruction ICD Codes: K56.609 - Unspecified intestinal obstruction, unspecified as to partial versus complete obstruction SNOMED: 499926822 (2) Pancreatitis, acute ICD Codes: K85.90 - Acute pancreatitis without necrosis or infection, unspecified SNOMED: 262960566 Qualifiers: Qualified Codes: K85.90 - Acute pancreatitis without necrosis or infection, unspecified (3) Headache ICD Codes: R51 - Headache SNOMED: 57633154 Status: progressing Status Narrative Discussed with Dr. Mccarthy. Assessment/Plan fu surgical recs >> CT findings likely from gastroparesis/ileus possibly secondary to pancreatitis. abdominal U/S, Brain MRI reviewed >> unremarkable trial of non operative management, ex lap if fails. NGT removed today, trial CLD pain mgmt serial monitoring repeat imaging prn, fu abdominal U/S. abx fu labs Subjective Subjective abdominal pain improved headache improved Objective Last 24 Hour Vital Signs Date Time Temp Pulse Resp B/P (MAP) Pulse Ox O2 Delivery O2 Flow Rate FiO2 09/13/17 08:07 98.2 64 20 115/66 97 Room Air 09/13/17 04:00 97.9 65 20 113/66 95 09/13/17 00:00 98.7 67 20 98/54 96 09/12/17 20:00 98.3 72 20 111/63 94 09/12/17 18:05 98.6 09/12/17 16:00 98.6 68 19 119/63 93 09/12/17 11:50 97.9 69 20 128/72 97 Room Air Intake and Output 09/12/17 09/13/17 19:00 07:00 Intake Total 1125 ml 1500 ml Output Total 275 ml 25 ml Balance 850 ml 1475 ml Intake IV Total 1125 ml 1500 ml Output Other 275 ml 25 ml # Voids 3 3 Laboratory Tests Test 09/13/17 06:24 White Blood Count 7.7 K/UL (4.8-10.8) Red Blood Count 4.17 M/UL (4.20-5.40) L Hemoglobin 12.3 G/DL (12.0-16.0) Hematocrit 37.0 % (37.0-47.0) Mean Corpuscular Volume 89 FL (80-99) Mean Corpuscular Hemoglobin 29.5 PG (27.0-31.0) Mean Corpuscular Hemoglobin Concent 33.3 G/DL (32.0-36.0) Red Cell Distribution Width 11.5 % (11.6-14.8) L Platelet Count 305 K/UL (150-450) Mean Platelet Volume 8.0 FL (6.5-10.1) Neutrophils (%) (Auto) 62.0 % (45.0-75.0) Lymphocytes (%) (Auto) 29.0 % (20.0-45.0) Monocytes (%) (Auto) 7.4 % (1.0-10.0) Eosinophils (%) (Auto) 0.9 % (0.0-3.0) Basophils (%) (Auto) 0.7 % (0.0-2.0) Sodium Level 141 MMOL/L (136-145) Potassium Level 3.6 MMOL/L (3.5-5.1) Chloride Level 108 MMOL/L (98-107) H Carbon Dioxide Level 25 MMOL/L (21-32) Anion Gap 8 mmol/L (5-15) Blood Urea Nitrogen 5 mg/dL (7-18) L Creatinine 0.6 MG/DL (0.55-1.30) Estimat Glomerular Filtration Rate > 60 mL/min (>60) Glucose Level 103 MG/DL (74-106) Calcium Level 8.7 MG/DL (8.5-10.1) Height (Feet): 4 Height (Inches): 11.00 Weight (Pounds): 147 General Appearance: WD/WN, no apparent distress, alert, thin Cardiovascular: normal rate Respiratory/Chest: normal breath sounds, no respiratory distress Abdominal Exam: normal bowel sounds, non tender, soft Extremities: normal range of motion, non-tender Josephine Jung N.P. Sep 13, 2017 10:51
[2017-09-13 11:49] VITALS: BP 113/60
--- NOTE | 2017-09-13 12:45 | Neurology Progress Note ---
Interim History Interim History ROS Limited/Unobtainable: No Complaints: mild CAMACHO,less dizziness, no fevers Events: stable Objective Physical Exam Last Vital Signs Date Time Temp Pulse Resp B/P (MAP) Pulse Ox O2 Delivery O2 Flow Rate FiO2 09/13/17 11:49 98.6 68 22 113/60 97 Room Air Laboratory Tests Test 09/13/17 06:24 White Blood Count 7.7 K/UL (4.8-10.8) Red Blood Count 4.17 M/UL (4.20-5.40) L Hemoglobin 12.3 G/DL (12.0-16.0) Hematocrit 37.0 % (37.0-47.0) Mean Corpuscular Volume 89 FL (80-99) Mean Corpuscular Hemoglobin 29.5 PG (27.0-31.0) Mean Corpuscular Hemoglobin Concent 33.3 G/DL (32.0-36.0) Red Cell Distribution Width 11.5 % (11.6-14.8) L Platelet Count 305 K/UL (150-450) Mean Platelet Volume 8.0 FL (6.5-10.1) Neutrophils (%) (Auto) 62.0 % (45.0-75.0) Lymphocytes (%) (Auto) 29.0 % (20.0-45.0) Monocytes (%) (Auto) 7.4 % (1.0-10.0) Eosinophils (%) (Auto) 0.9 % (0.0-3.0) Basophils (%) (Auto) 0.7 % (0.0-2.0) Sodium Level 141 MMOL/L (136-145) Potassium Level 3.6 MMOL/L (3.5-5.1) Chloride Level 108 MMOL/L (98-107) H Carbon Dioxide Level 25 MMOL/L (21-32) Anion Gap 8 mmol/L (5-15) Blood Urea Nitrogen 5 mg/dL (7-18) L Creatinine 0.6 MG/DL (0.55-1.30) Estimat Glomerular Filtration Rate > 60 mL/min (>60) Glucose Level 103 MG/DL (74-106) Calcium Level 8.7 MG/DL (8.5-10.1) General: well developed, well nourished, no acute distress Head: normocophalic, atraumatic Neck: no rigidity Neurologic Exam Mental Status: awake, alert, oriented x4, normal cognition, good mathematical skills, normal recent memory, normal remote memory, preserved visuospatial function Speech: normal speech, no dysarthia Language: normal language, no aphasia Cranial Nerve II: fundus normal, visual snyder, no papilledema Cranial Nerves III, IV, : PERRLA, EOMI, pupils Cranial Nerve V: normal facial sensations, temporales function normal, masseters function normal, pterygoids function normal Cranial Nerve VII: no facial asymmetry, normal facial expressions Cranial Nerve VIII: normal hearing, no nystagmus Cranial Nerve IX: normal palate elevation, gag response Cranial Nerve X: no voice hoarseness Cranial Nerve XI: SCM symmetric, trapezii function normal Cranial Nerve XII: tongue midline, no tongue atrophy/fasciculations Motor System: normal muscle tone, strength 5/5, no involuntary movement, no muscle wasting Sensory: normal pinprick, normal light touch, normal position sense, normal graphesthesia Coordination: normal finger to nose bilaterally Deep Tendon Reflexes: 1+ bicep (L), 1+ bicep (R), 1+ tricep (L), 1+ tricep (R) , 1+ brachioradialis (L), 1+ brachioradialis (R), 1+ knee (L), 1+ knee (R), 1+ ankle (L), 1+ ankle (R) Reflexes: mute plantar (L), mute plantar (R) Stance: normal Gait: stable, normal regular, heel + toe gait Impression/Recommendations Problems: (1) probably viral syndrom with headache,positional vertigo (2) Pancreatitis, acute Status: stable Recommendations #[id number] improving cont present rx ANNABELLE MUÑOZ Sep 13, 2017 12:45
[2017-09-13] MEDS: Morphine Sulfate 2mg/ml Inj IVP PRN (15:28)
[2017-09-13 15:58] VITALS: BP 116/71
--- NOTE | 2017-09-13 15:58 | Pulmonology Progress Note ---
Assessment/Plan Problems: (1) Pancreatitis, acute (2) Small bowel obstruction Assessment/Plan start diet, if tolerate dc home Iv fluids symptomatic treatment Subjective ROS Limited/Unobtainable: No Allergies: Coded Allergies: NO KNOWN ALLERGIES (Unverified Allergy, Unknown, 06/20/15) Objective Last 24 Hour Vital Signs Date Time Temp Pulse Resp B/P (MAP) Pulse Ox O2 Delivery O2 Flow Rate FiO2 09/13/17 11:49 98.6 68 22 113/60 97 Room Air 09/13/17 08:07 98.2 64 20 115/66 97 Room Air 09/13/17 04:00 97.9 65 20 113/66 95 09/13/17 00:00 98.7 67 20 98/54 96 09/12/17 20:00 98.3 72 20 111/63 94 09/12/17 18:05 98.6 09/12/17 16:00 98.6 68 19 119/63 93 Intake and Output 09/12/17 09/13/17 19:00 07:00 Intake Total 1125 ml 1500 ml Output Total 275 ml 25 ml Balance 850 ml 1475 ml IV Total 1125 ml 1500 ml Output Other 275 ml 25 ml # Voids 3 3 General Appearance: WD/WN HEENT: normocephalic, anicteric Respiratory/Chest: chest wall non-tender, normal breath sounds Cardiovascular: normal peripheral pulses, normal rate Abdomen: normal bowel sounds, no scars Extremities: no cyanosis Skin: no rash Laboratory Tests 09/13/17 06:24: White Blood Count 7.7, Red Blood Count 4.17L, Hemoglobin 12.3, Hematocrit 37.0, Mean Corpuscular Volume 89, Mean Corpuscular Hemoglobin 29.5, Mean Corpuscular Hemoglobin Concent 33.3, Red Cell Distribution Width 11.5L, Platelet Count 305, Mean Platelet Volume 8.0, Neutrophils (%) (Auto) 62.0, Lymphocytes (%) (Auto) 29.0, Monocytes (%) (Auto) 7.4, Eosinophils (%) (Auto) 0.9, Basophils (%) (Auto ) 0.7, Sodium Level 141, Potassium Level 3.6, Chloride Level 108H, Carbon Dioxide Level 25, Anion Gap 8, Blood Urea Nitrogen 5L, Creatinine 0.6, Estimat Glomerular Filtration Rate > 60, Glucose Level 103, Calcium Level 8.7 Current Medications Medications (Trade) Dose Ordered Sig/Machelle Route PRN Reason Start Time Stop Time Status Last Admin Dose Admin Acetaminophen (Tylenol) 650 mg Q4H PRN ORAL T>100.5 09/11/17 06:45 10/11/17 06:44 Al Hydroxide/Mg Hydroxide (Mylanta II) 30 ml Q6H PRN ORAL dyspepsia 09/11/17 06:45 10/11/17 06:44 Dextrose (Dextrose 50%) STAT PRN IV Hypoglycemia 09/11/17 06:45 10/11/17 06:44 Dextrose/ Electrolytes 1,000 ml @ 125 mls/hr Q8H IV 09/12/17 11:30 10/12/17 11:29 09/13/17 11:29 Diphenhydramine HCl (Benadryl) 25 mg Q6H PRN ORAL Itching/Pruritis 09/11/17 06:45 10/11/17 06:44 Heparin Sodium (Porcine) (Heparin 5000 units/ml) 5,000 units EVERY 12 HOURS SUBQ 09/11/17 09:00 10/11/17 08:59 09/13/17 09:10 Meclizine HCl (Antivert) 25 mg Q6H PRN ORAL for dizziness 09/11/17 13:15 10/11/17 13:14 09/12/17 17:16 Morphine Sulfate (Morphine Sulfate) 2 mg Q4H PRN IVP Severe Pain (Pain Scale 7-10) 09/11/17 06:45 09/18/17 06:44 09/13/17 15:28 Nitroglycerin (Ntg) 0.4 mg Q5M X 3 DOSES PRN SL Prn Chest Pain 09/11/17 06:45 10/11/17 06:44 Ondansetron HCl (Zofran) 4 mg Q6H PRN IVP Nausea & Vomiting 09/11/17 06:45 10/11/17 06:44 09/13/17 15:28 Pantoprazole (Protonix) 40 mg DAILY IVP 09/11/17 09:00 10/11/17 08:59 09/13/17 09:09 Polyethylene Glycol (Miralax) 17 gm HSPRN PRN ORAL Constipation 09/11/17 21:00 10/11/17 20:59 Temazepam (Restoril) 15 mg HSPRN PRN ORAL Insomnia 09/11/17 21:00 09/18/17 20:59 09/12/17 19:55 ROSEANNA ROTH Sep 13, 2017 15:58
[2017-09-13] MEDS ORDERED: TYLENOL325 MG ORAL (17:03)
[2017-09-13] MEDS ORDERED: D5 1/2NS 1000ml IV ONE (18:44)
[2017-09-13] MEDS ORDERED: Tubing IV Secondary IV ONE (18:44)
[2017-09-13] MEDS ORDERED: NS 275ml ONE (18:44)
--- NOTE | 2017-09-14 11:08 | Discharge Summary ---
Discharge Summary Hospital Course Date of Admission Sep 11, 2017 at 06:22 Date of Discharge Sep 13, 2017 at 18:45 Admitting Diagnosis PANCREATITIS HPI Jesica Dave is a 57 year old female who was admitted on Sep 11, 2017 at 06:22 for Pancreatitis Hospital Course [id number] Discharge Discharge Disposition Patient was discharged to Home (01) Discharge Diagnoses: Melvi Bourgeois NP Sep 14, 2017 11:08
--- NOTE | 2017-09-15 | Discharge Summary 2 SIG ---
DATE OF ADMISSION: 09/11/2017 DATE OF DISCHARGE: 09/13/2017 CONSULTANTS: 1. Ean Patel M.D. 2. Jase Lombardi M.D. 3. Jun Contreras M.D. BRIEF HOSPITAL COURSE: The patient is a 57-year-old female with prior history of gastritis presented to ED complaining of increased epigastric pain with gradual onset of symptoms after taking ibuprofen. Pain radiates to the back. On evaluation at ED, she was given IV hydration and pain management. Blood work showed no leukocytosis, however, lipase was markedly elevated to 1644. She was then admitted for acute pancreatitis. She had abdominal and pelvic CT scan done that showed distended stomach, duodenum and proximal small bowel with gradual tapering to normal caliber small bowel at the level of the distal jejunum. The patient had possible low-grade small bowel obstruction versus an unusual manifestation of ileus or enteritis. Dr. Lombardi was consulted. The patient had an episode of emesis x1. She was started on conservative management and NG tube was inserted and connected to low intermittent suction. She was placed on NPO. NG tube output showed minimal gastric contents. Abdominal ultrasound showed normal gallbladder with no stones. There is no history of ETOH. She had elevated cholesterol and lipid. Lipase downtrended. NG tube was discontinued and she was started on diet. Dr. Patel was also consulted to evaluate new onset of severe headache with positional vertigo, nausea, and epigastric pain. Neurological exam showed no evidence of focal lateralizing neurological deficits. Symptoms described presence of positional vertigo and headaches developed after what seems to have been upper respiratory infection. She was given Antivert 25 mg t.i.d. MRI of the brain done showed minimal age-related volume loss. Negative for acute intracranial bleed, mass effect, or infarct. She was tolerating diet well and her symptoms improved. She was eventually discharged home. FINAL DIAGNOSES: 1. Acute pancreatitis. 2. Small bowel obstruction. 3. Probably viral syndrome with headache and positional vertigo. DISPOSITION: The patient was discharged home. DISCHARGE MEDICATIONS: Refer to medication list. The patient was advised to stop taking ibuprofen or Naprosyn. DISCHARGE INSTRUCTIONS: Followup with PMD in a week. Liliya Dwyer M.D. I have been assigned to dictate discharge summary on this account and I was not involved in the patient's management. Melvi Bourgeois N.P. DR: JULIENNE JOB#: [id number] CC: AUDRA
== END 2017-09-13 18:45 | disposition home or self-care (01) | DRG 282 ==
LOC: EMR 05:03 → 4E 06:22 → EDBEDREQ 06:32
DX: K85.90 Acute pancreatitis without necrosis or infection, unspecified (principal); K56.609 Unspecified intestinal obstruction, unspecified as to partial versus complete obstruction; E78.5 Hyperlipidemia, unspecified; H81.10 Benign paroxysmal vertigo, unspecified ear; B34.9 Viral infection, unspecified
CPT/HCPCS: 36415; 70551; 71045; 74018; 74177; 76700; 80048; 80053; 80061; 80307; 81003; 82140; 82150; 82607; 83690; 83735; 84100; 84484; 85025; 85610; 85651; 85730; 86039; 86140; 99285; J2405

== ENCOUNTER 2018-04-22 13:50 | Emergency (ER) | payer MEDICAID ==
[~2018-04-22] VITALS: Ht 149.9 cm; Wt 63.5 kg
[~2018-04-22 13:50] MED LIST changes: +NAPROSYN500 M1 ORAL; +ROBAFEN100 MG/5 M PO; +TYLENOL325 MG ORAL
[2018-04-22] MEDS ORDERED: Tylenol #3 tab (300mg/30mg) PO ONE (14:15)
[2018-04-22 15:37] VITALS: BP 113/68
[2018-04-22] MEDS ORDERED: TYLENOL EXTRA500 MG ORAL (15:42)
[2018-04-22 15:50] VITALS: BP 113/68
--- NOTE | 2018-04-22 16:27 | Emergency Room Report ---
History of Present Illness General Chief Complaint: Head Injury Source: Patient Present Illness HPI 58-year-old female presents ED complaining of headache status post head injury. States that she hit her head on a window ledge on Sunday. Denies LOC. Pain continued headache since injury. Pain is throbbing, 8 out of 10, nonradiating. Denies neck pain. Denies fevers or chills. Denies nausea or vomiting. No other aggravating relieving factors. Denies any other associated symptoms Allergies: Coded Allergies: NO KNOWN ALLERGIES (Unverified Allergy, Unknown, 06/20/15) Patient History Past Medical History: none Past Surgical History: none Pertinent Family History: none Social History: Denies: smoking, alcohol use, drug use Last Menstrual Period: na Now: No Immunizations: UTD Reviewed Nursing Documentation: PMH: Agreed; PSxH: Agreed Nursing Documentation-PMH Past Medical History: No Stated History Hx Cardiac Problems: No Hx Cancer: No Hx Gastrointestinal Problems: No Hx Neurological Problems: No Review of Systems All Other Systems: negative except mentioned in HPI Physical Exam Vital Signs Date Time Temp Pulse Resp B/P (MAP) Pulse Ox O2 Delivery O2 Flow Rate FiO2 04/22/18 14:00 98.8 65 18 113/68 98 Room Air 98.8 Sp02 EP Interpretation: reviewed, normal General Appearance: no apparent distress, alert, GCS 15, non-toxic Head: normocephalic, atraumatic Eyes: bilateral eye normal inspection, bilateral eye PERRL ENT: hearing grossly normal, normal pharynx, no angioedema, normal voice Neck: full range of motion, no bony tend, supple/symm/no masses Respiratory: chest non-tender, lungs clear, normal breath sounds, speaking full sentences Cardiovascular #1: regular rate, rhythm, no edema Cardiovascular #2: 2+ carotid (R), 2+ carotid (L), 2+ radial (R), 2+ radial (L) , 2+ dorsalis pedis (R), 2+ dorsalis pedis (L) Gastrointestinal: normal bowel sounds, non tender, soft, non-distended, no guarding, no rebound Rectal: deferred Genitourinary: normal inspection, no CVA tenderness Musculoskeletal: back normal, gait/station normal, normal range of motion, non- tender Neurologic: alert, oriented x3, responsive, motor strength/tone normal, sensory intact, speech normal Psychiatric: judgement/insight normal, memory normal, mood/affect normal, no suicidal/homicidal ideation Reflexes: 3+ bicep (R), 3+ bicep (L), 3+ tricep (R), 3+ tricep (L), 3+ knee (R) , 3+ knee (L) Skin: normal color, no rash, warm/dry, well hydrated Lymphatic: no adenopathy Medical Decision Making Diagnostic Impression: Primary Impression: Acute head injury Qualified Codes: S09.90XA - Unspecified injury of head, initial encounter Additional Impression: Headache Qualified Codes: R51 - Headache ER Course Hospital Course 58-year-old F presents ED complaining of headache s/p hitting head on ledge. no LOC Differential diagnoses include: skull fx, intracranial injury, concussion Clinical course Patient placed on stretcher. After initial history and physical I ordered CT head and pain medications CT head shows no acute process. discussed findings with patient. patient safe for discharge Diagnosis - head injury, headache Stable and discharged to home with Rx Tylenol. Followup with PMD. Return to ED if symptoms recur or worsen CT/MRI/US Diagnostic Results CT/MRI/US Diagnostic Results : Imaging Test Ordered: CT Head Impression no acute process Last Vital Signs Date Time Temp Pulse Resp B/P (MAP) Pulse Ox O2 Delivery O2 Flow Rate FiO2 04/22/18 15:50 98.0 82 18 113/68 98 Room Air 209.8 Status: improved Disposition: HOME, SELF-CARE Condition: Stable Scripts Acetaminophen* (TYLENOL EXTRA STRENGTH*) 500 Mg Tablet 500 MG ORAL Q8H PRN for Prn Headache/Temp > 101, #30 TAB 0 Refills Prov: Harrison Rich MD 04/22/18 Referrals: [facility]ERR[facility] (PCP) Patient Instructions: Head Injury, Adult, [id number] Harrison Rich MD Apr 22, 2018 16:26
--- NOTE | 2018-04-23 10:39 | Diagnostic Imaging Report ---
Indication: Headache after hitting top of head on window less. Nausea and vomiting Technique: Continuous helical CT scanning of the head was performed without intravenous contrast material. Axial and coronal 5 mm sections were generated. Radiation dose was minimized using automated exposure control Dose: Total Dose Length Product - DLP 1305.[address] Dose Index - CTDIvol(s) 70.38 mGy. Comparison: 09/10/2017 Findings: The ventricular system is normal in size and configuration. There is no shift of midline structures. No abnormal extra-axial fluid collections are noted. There is no evidence of intracerebral bleeding. No other abnormal high or low density areas are noted within the brain. Intact calvarium. Visualized orbits and sinuses are unremarkable Impression: Normal CT scan of the head without contrast material. This agrees with the preliminary interpretation provided overnight by [facility] service. The CT scanner at [facility] is accredited by the [employer] and the scans are performed using protocols designed to limit radiation exposure to as low as reasonably achievable to attain images of sufficient resolution adequate for diagnostic evaluation.
== END 2018-04-22 15:56 | disposition home or self-care (01) ==
LOC: EMR 14:15
DX: S09.90XA Unspecified injury of head, initial encounter (principal); W22.8XXA Striking against or struck by other objects, initial encounter; Y93.9 Activity, unspecified; Y92.9 Unspecified place or not applicable
CPT/HCPCS: 70450; 99284